=== PATIENT | female | born 1955 ===

== ENCOUNTER 2020-09-24 08:29 | Outpatient (REF) | payer OTHER, SELFPAY ==
--- NOTE | 2020-09-24 08:36 | MM_ITS ---
EXAMINATION: MM SCREENING DIGITAL BREAST TOMOSYNTHESIS, BILATERAL CLINICAL INFORMATION: Screening. Asymptomatic. The lifetime risk of breast cancer based on the Tyrer-Cuzick Model is 4%. COMPARISON: Mammography: 09/19/2019, 09/10/2018, 09/03/2017 TECHNIQUE: Digital breast tomosynthesis is performed in both the craniocaudal and mediolateral oblique views along with computer-aided detection (CAD). Synthesized 2D images are generated from the tomosynthesis. FINDINGS: There are scattered areas of fibroglandular density (ACR BI-RADS breast composition Category b). There are no significant masses, abnormal calcifications, or other abnormalities. The axilla and skin contours are unremarkable. No significant changes. MM/MM tomosynthesis screening BI IMPRESSION: No mammographic evidence of malignancy. ASSESSMENT: BI-RADS 1: Negative RECOMMENDATION: Routine annual mammography screening. This patient's information was entered into a reminder system with a target due date for their next mammogram.
== END 2020-09-24 08:30 | disposition home or self-care (01) ==
LOC: HO.MAMMO 08:29
PROVIDERS: Visit Provider Hospitalist
DX: Z12.31 Encounter for screening mammogram for malignant neoplasm of breast (principal)
CPT/HCPCS: 77063; 77067

== ENCOUNTER 2021-01-04 07:28 | Day surgery (SDC) | payer OTHER, SELFPAY ==
[2020-12-31 10:13] VITALS: BMI 26.8
--- NOTE | 2021-01-03 09:07 | HO.ANESPROP2 ---
Documented by User: Soledad Titus 01/03/21 09:08 HPI - Anesthesia Eval Consult details Narrative: 65yo F for Colonoscopy PMFSH Past Medical History Medical History Diabetes Elevated cholesterol HTN (hypertension) Surgical History Surgical History H/O colonoscopy History of Hx of appendectomy Hx of total hysterectomy with removal of both tubes and ovaries Social History Social History Smoking Status: Unknown if ever smoked Advance Directives Information Provided: No Meds Allergies Allergy/AdvReac Type Severity Reaction Status Date / Time penicillin V Allergy Intermediate rash, Verified 12/31/20 10:11 hives, swollen lips Sulfa (Sulfonamide Allergy Intermediate rash, Verified 12/31/20 10:11 Antibiotics) hives, swollen lips Home Medications Medication Instructions Recorded Confirmed Last Taken Type aspirin [Aspirin Low Dose] 81 mg PO DAILY 12/31/20 12/31/20 12/26/20 History atorvastatin 1 tab PO DAILY 12/31/20 12/31/20 Unknown History cholecalciferol (vitamin D3) 25 mcg PO DAILY 12/31/20 12/31/20 Unknown History [Vitamin D3] glipizide 1 tab PO DAILY 12/31/20 12/31/20 Unknown History hydrochlorothiazide 1 tab PO DAILY 12/31/20 12/31/20 Unknown History lisinopril 1 tab PO DAILY 12/31/20 12/31/20 01/04/21 History metformin 1 tab PO BID 12/31/20 12/31/20 Unknown History multivitamin 1 tab PO DAILY 12/31/20 12/31/20 Unknown History Exam Exam Date and Time: January 03, 2021 0907 Height,Weight and Vital Signs: Height 5 ft 6 in Weight 75.296 kg Assessment and Plan Assessment Anesthesia Assessment: Chart Reviewed Documented by User: Linda Calloway 01/04/21 08:30 [facility] Past Medical History Medical History Diabetes Elevated cholesterol HTN (hypertension) Surgical History Surgical History H/O colonoscopy History of Hx of appendectomy Hx of total hysterectomy with removal of both tubes and ovaries Social History Social History Smoking Status: Unknown if ever smoked Advance Directives Information Provided: No Meds Allergies Allergy/AdvReac Type Severity Reaction Status Date / Time penicillin V Allergy Intermediate rash, Verified 12/31/20 10:11 hives, swollen lips Sulfa (Sulfonamide Allergy Intermediate rash, Verified 12/31/20 10:11 Antibiotics) hives, swollen lips Home Medications Medication Instructions Recorded Confirmed Last Taken Type aspirin [Aspirin Low Dose] 81 mg PO DAILY 12/31/20 12/31/20 12/26/20 History atorvastatin 1 tab PO DAILY 12/31/20 12/31/20 Unknown History cholecalciferol (vitamin D3) 25 mcg PO DAILY 12/31/20 12/31/20 Unknown History [Vitamin D3] glipizide 1 tab PO DAILY 12/31/20 12/31/20 Unknown History hydrochlorothiazide 1 tab PO DAILY 12/31/20 12/31/20 Unknown History lisinopril 1 tab PO DAILY 12/31/20 12/31/20 01/04/21 History metformin 1 tab PO BID 12/31/20 12/31/20 Unknown History multivitamin 1 tab PO DAILY 12/31/20 12/31/20 Unknown History Exam Height,Weight and Vital Signs: Vital Signs Temp Pulse Resp BP Pulse Ox 01/04/21 07:51 98.1 F 84 18 116/66 98 Pertinent Lab Results Pertinent Lab Results: POC: 123 Airway Mallampati Class: II TM Dist: >3cm Neck ROM: Full Loose/Missing/Broken Teeth: No Heart: RRR Lungs: CTAB Assessment and Plan Assessment Anesthesia Assessment: Anesthesia Plan Discussed and Chart Reviewed Final Anesthetic Review NPO: Yes ASA Class: II Final Preanesthetic Review: No Changes in Pt Med Stat, Meds/Allgs Chart Reviewed, Consent Obtained/Reviewed and Anes Risks/Benef Reviewed Patient Risk: Low Procedure Risk: Low Assessment/Block/Sedation in SS: Assess/Block/Sedation-SS Anesthetic Plan Anesthetic Plan: MAC: Disposition: Standard PACU
[2021-01-04 07:51] VITALS: BP 116/66; PULSE 84; RESP 18; TEMP 36.7; O2SAT 98
[2021-01-04] MEDS: Lactated Ringers 1,000 ML 100 ML IVCONT (08:10)
--- NOTE | 2021-01-04 08:52 | MHC.SHP ---
Pre-Procedural Eval Section A The patient is an INPATIENT: No The History & Physical has been completed within 30 days and I have reviewed it.: Yes Section B Chief Complaint: family hx of polyps Allergies: Allergies Allergy/AdvReac Type Severity Reaction Status Date / Time penicillin V Allergy Intermediate rash, Verified 12/31/20 10:11 hives, swollen lips Sulfa (Sulfonamide Allergy Intermediate rash, Verified 12/31/20 10:11 Antibiotics) hives, swollen lips Plan I have reviewed the history and physical and performed a pertinent physical examination on my patient. No changes have occurred unless specified.
[2021-01-04 09:29] VITALS: BP 112/61; PULSE 81; RESP 20; TEMP 36.8; O2SAT 96
--- NOTE | 2021-01-04 09:32 | PM.OP ---
Brief Operative Note Date of Service: 01/04/21 Pre-op diagnosis: FH colon cancer Post-op diagnosis: same Procedure: colonoscopy Surgeon: Shyam Lerma Anesthesia: MAC Estimated blood loss (mL): 0 Pathology: none sent Condition: stable Disposition: PACU
[2021-01-04 09:42] VITALS: BP 129/67; PULSE 84; RESP 18; O2SAT 100
--- NOTE | 2021-01-04 10:13 | PM.OP ---
Brief Operative Note Date of Service: 01/04/21 Pre-op diagnosis: change in bowels, hx of polyps Post-op diagnosis: same Procedure: colonoscopy Surgeon: Shyam Lerma Anesthesia: MAC Estimated blood loss (mL): 2 Pathology: other (sigmoid bxs) Condition: stable Disposition: PACU
[2021-01-04 13:26] LABS: Glucose, Whole Blood 123 mg/dL (60-115)
--- NOTE | 2021-01-07 08:52 | OP_ITS ---
SURGEON: Shyam Lerma MD INDICATIONS: Colon cancer screening and family history of colon cancer. PREOPERATIVE DIAGNOSIS: POSTOPERATIVE DIAGNOSIS: PROCEDURE PERFORMED: Colonoscopy to the terminal ileum. ESTIMATED BLOOD LOSS: COMPLICATIONS: ANESTHESIA: ASSISTANTS: SPECIMENS: MEDICATIONS: Monitored anesthesia care. DESCRIPTION OF PROCEDURE: History and physical performed. The risks and benefits of the procedure were explained to the patient. Informed consent was obtained. The patient was placed in the left lateral decubitus position. A digital rectal exam was performed and was found to be normal. The Olympus pediatric video colonoscope was introduced into the rectum and advanced to the cecum without difficulty. The cecum was identified by transillumination, palpation, and identification of ileocecal valve. Examination was performed and the scope was removed. She tolerated the procedure well and was transferred to recovery area in stable condition. FINDINGS: The terminal ileum was examined and appeared normal. The visualized colonic mucosa was normal. The quality of the prep was good with some minor amounts of liquid stool coating the mucosa in the right colon. This was washed and suctioned. No polyps were identified. Retroflexed examination showed small internal hemorrhoids and hypertrophic anal papillae. IMPRESSION: Normal colonoscopy. RECOMMENDATIONS: 1. Follow up as needed. 2. Repeat colonoscopy is recommended in 5 years because of family history of colon cancer. MD DANNY Longo/NICOLA / [phone]
== END 2021-01-04 10:11 | disposition home or self-care (01) ==
PROVIDERS: PCP Hospitalist; Visit Provider Internal Medicine Gastroenterology
PROC: 0DJD8ZZ Inspection of Lower Intestinal Tract, Via Natural or Artificial Opening Endoscopic (ICD-10-PCS; CPT 45378; principal; 2021-01-04 08:30)
DX: Z12.11 Encounter for screening for malignant neoplasm of colon (principal); Z83.71 Family history of colonic polyps; Z80.0 Family history of malignant neoplasm of digestive organs; K62.89 Other specified diseases of anus and rectum; K64.8 Other hemorrhoids; I10 Essential (primary) hypertension; E11.9 Type 2 diabetes mellitus without complications; Z79.84 Long term (current) use of oral hypoglycemic drugs; Z79.82 Long term (current) use of aspirin; Z88.0 Allergy status to penicillin; Z88.2 Allergy status to sulfonamides; Z79.899 Other long term (current) drug therapy
CPT/HCPCS: 45378; 82947

== ENCOUNTER 2021-03-20 06:22 | Outpatient (REF) | payer OTHER, SELFPAY ==
[2021-03-20 11:33] LABS: Hemoglobin 14.1 g/dl (12.0-16.0); Mean Corpuscular Hemoglobin 28.8 pg (27.0-33.0); Mean Platelet Volume 10.8 fL (9.4-12.3); Platelet Count 368 X10*3/uL (160-400); Red Blood Count 4.89 X10*6/uL (4.20-5.50); Red Cell Distribution Width 12.9 % (11.0-16.0); White Blood Count 7.6 X10*3/uL (4.8-10.8)
[2021-03-20 11:47] LABS: Estimated Average Glucose 146 mg/dL; Hemoglobin A1c % 6.7 %
[2021-03-20 11:59] LABS: Alanine Aminotransferase 23 U/L (0-31); Albumin Level 4.3 g/dL (3.5-5.0); Alkaline Phosphatase 95 U/L (39-117); Anion Gap 14 (12-20); Aspartate Amino Transferase 20 U/L (5-31); Bilirubin Direct 0.3 mg/dL (0.0-0.5); Bilirubin Total 0.9 mg/dL (0.0-1.0); Blood Urea Nitrogen 19 mg/dL (9-16); Calcium 9.7 mg/dL (8.4-10.2); Carbon Dioxide 25 mmol/L (22-29); Chloride 104 mmol/L (96-108); Cholesterol 132 mg/dL; Estimated Glomerular Filt Rate > 60; HDL Cholesterol 44 mg/dL; LDL Cholesterol Calculated 68 mg/dl; Potassium 4.8 mmol/L (3.3-5.1); Sodium 138 mmol/L (135-145); Total Protein 6.9 g/dL (6.5-8.0); Triglycerides 104 mg/dL
[2021-03-20 12:11] LABS: Creatinine Urine 141.73 mg/dL; Microalbum/Creatinine Ratio Ur 4.2 ug/mg cr
== END 2021-03-20 06:23 | disposition home or self-care (01) ==
LOC: HO.HMGCLDS 06:22
PROVIDERS: PCP Hospitalist; Visit Provider Nurse Practitioner Family
DX: Z00.00 Encounter for general adult medical examination without abnormal findings (principal); E11.9 Type 2 diabetes mellitus without complications
CPT/HCPCS: 36415; 80051; 80061; 80076; 82043; 82310; 82565; 83036; 84520; 85027

== ENCOUNTER 2021-09-27 08:03 | Outpatient (REF) | payer OTHER, SELFPAY ==
--- NOTE | ~2021-09-27 | MM_ITS ---
EXAMINATION: MM SCREENING DIGITAL BREAST TOMOSYNTHESIS, BILATERAL CLINICAL INFORMATION: Screening. Asymptomatic. The lifetime risk of breast cancer based on the Tyrer-Cuzick Model is 4%. COMPARISON: Mammography: 09/24/2020, 09/19/2019, 09/10/2018 TECHNIQUE: Digital breast tomosynthesis is performed in both the craniocaudal and mediolateral oblique views along with computer-aided detection (CAD). Synthesized 2D images are generated from the tomosynthesis. FINDINGS: There are scattered areas of fibroglandular density (ACR BI-RADS breast composition Category b). There are no significant masses, abnormal calcifications, or other abnormalities. MM/MM tomosynthesis screening BI IMPRESSION: No mammographic evidence of malignancy. ASSESSMENT: BI-RADS 1: Negative RECOMMENDATION: Routine annual mammography screening. This patient's information was entered into a reminder system with a target due date for their next mammogram.
== END 2021-09-27 08:04 | disposition home or self-care (01) ==
LOC: HO.MAMMO 08:03
PROVIDERS: PCP Hospitalist; Visit Provider Hospitalist
DX: Z12.31 Encounter for screening mammogram for malignant neoplasm of breast (principal)
CPT/HCPCS: 77063; 77067

== ENCOUNTER 2022-03-17 12:51 | Outpatient (REF) | payer OTHER, SELFPAY ==
[2022-03-17 13:59] LABS: Estimated Average Glucose 148 mg/dL; Hemoglobin A1c % 6.8 %
== END 2022-03-17 12:52 | disposition home or self-care (01) ==
LOC: HO.HMGCLDS 12:51
PROVIDERS: Visit Provider Student in an Organized Health Care Education/Training Program
DX: E11.9 Type 2 diabetes mellitus without complications (principal)
CPT/HCPCS: 36415; 83036

== ENCOUNTER 2022-04-02 10:31 | Outpatient (REF) | payer OTHER, SELFPAY ==
[2022-04-02 11:43] LABS: MANUAL DIFF FLAG NO
[2022-04-02 11:52] LABS: Basophils Absolute Auto 0.1 X10*3/uL (0.0-0.2); Basophils Percent Auto 0.6 % (0-2); Eosinophils Absolute Auto 0.1 X10*3/uL (0.0-0.4); Eosinophils Percent Auto 1.2 % (0-4); Hematocrit 43.8 % (37.0-47.0); Hemoglobin 14.4 g/dl (12.0-16.0); Imm Gran Abs Auto 0.03 X10*3/uL (0.00-0.03); Imm Gran Pct Auto 0.4 % (0.0-0.4); Lymphocytes Absolute Auto 2.6 X10*3/uL (1.2-4.9); Lymphocytes Percent Auto 30.6 % (20-40); Mean Corpuscular HGB Conc 32.9 g/dl (31.0-35.0); Mean Corpuscular Volume 88.3 fL (80.0-98.0); Mean Platelet Volume 10.4 fL (9.4-12.3); Monocytes Absolute Auto 0.6 X10*3/uL (0.1-1.2); Monocytes Percent Auto 7.3 % (2-11); Neutrophils Absolute Auto 5.1 x10*3/uL (2.0-8.3); Neutrophils Percent Auto 59.9 % (45-73); Platelet Count 383 X10*3/uL (160-400); Red Blood Count 4.96 X10*6/uL (4.20-5.50); Red Cell Distribution Width 12.5 % (11.0-16.0); White Blood Count 8.5 X10*3/uL (4.8-10.8)
[2022-04-02 12:12] LABS: Creatinine Urine 41.86 mg/dL; Microalbumin Urine < 5.0 mg/L
[2022-04-02 12:16] LABS: Alanine Aminotransferase 30 U/L (0-31); Albumin Level 4.5 g/dL (3.5-5.0); Alkaline Phosphatase 87 U/L (39-117); Anion Gap 12 (12-20); Aspartate Amino Transferase 20 U/L (5-31); Bilirubin Total 0.7 mg/dL (0.0-1.0); Blood Urea Nitrogen 20 mg/dL (9-16); Calcium 10.1 mg/dL (8.4-10.2); Carbon Dioxide 29 mmol/L (22-29); Chloride 103 mmol/L (96-108); Cholesterol 138 mg/dL; Estimated Glomerular Filt Rate 57; Glucose Random 190 mg/dL (60-115); HDL Cholesterol 43 mg/dL; LDL Cholesterol Calculated 66 mg/dl; Potassium 4.5 mmol/L (3.3-5.1); Sodium 139 mmol/L (135-145); Total Protein 7.2 g/dL (6.5-8.0); Triglycerides 145 mg/dL
[2022-04-02 12:42] LABS: TSH reflex Free T4 3.24 uIU/mL (0.32-4.0)
[2022-04-02 13:09] LABS: Vitamin B12 224 pg/mL (200-900)
== END 2022-04-02 10:32 | disposition home or self-care (01) ==
LOC: HO.HMGCLDS 10:31
PROVIDERS: PCP Physician Assistant; Visit Provider Physician Assistant
DX: Z00.00 Encounter for general adult medical examination without abnormal findings (principal); E11.9 Type 2 diabetes mellitus without complications; E78.5 Hyperlipidemia, unspecified; I10 Essential (primary) hypertension
CPT/HCPCS: 36415; 80053; 80061; 82043; 82607; 84443; 85025

== ENCOUNTER 2022-09-29 07:23 | Outpatient (REF) | payer MEDICARE, OTHER, SELFPAY ==
--- NOTE | ~2022-09-29 | MM_ITS ---
EXAMINATION: MM SCREENING DIGITAL BREAST TOMOSYNTHESIS, BILATERAL CLINICAL INFORMATION: Screening. Asymptomatic. The lifetime risk of breast cancer based on the Tyrer-Cuzick Model is 4%. COMPARISON: Mammography: 09/27/2021, 09/24/2020, 09/19/2019 TECHNIQUE: Digital breast tomosynthesis is performed in both the craniocaudal and mediolateral oblique views along with computer-aided detection (CAD). Synthesized 2D images are generated from the tomosynthesis. FINDINGS: There are scattered areas of fibroglandular density (ACR BI-RADS breast composition Category b). There are no significant masses, abnormal calcifications, or other abnormalities. Parenchymal pattern is similar to prior studies. There is no developing density or architectural abnormality. The axilla and skin contours are unremarkable. No significant changes. MM/MM tomosynthesis screening BI IMPRESSION: No mammographic evidence of malignancy. ASSESSMENT: BI-RADS 1: Negative RECOMMENDATION: Routine annual mammography screening. This patient's information was entered into a reminder system with a target due date for their next mammogram.
== END 2022-09-29 07:24 | disposition home or self-care (01) ==
LOC: HO.MAMMO 07:23
PROVIDERS: PCP Internal Medicine; Visit Provider Physician Assistant
DX: Z12.31 Encounter for screening mammogram for malignant neoplasm of breast (principal)
CPT/HCPCS: 77063; 77067

== ENCOUNTER 2022-10-03 10:18 | Outpatient (REF) | payer MEDICARE, OTHER, SELFPAY ==
--- NOTE | ~2022-10-03 | MM_ITS ---
EXAMINATION: BONE DENSITOMETRY CLINICAL INDICATION: Osteoporosis. COMPARISON: Baseline BD dated 09/25/2017. TECHNIQUE: Using a [employer] DXA System (software version: 13.1) manufactured by [employer], dual-energy x-ray absorptiometry was performed of the lumbar spine and left hip. The images are of good technical quality. Summary results are attached. FINDINGS: AP SPINE L1-L4: Current: BMD 1.050 g/cm2, Z-score 0.2, T-score -1.1, osteopenia, 0.8% decrease from baseline (<5% change is not significant). Baseline: BMD 1.058 g/cm2. LEFT FEMUR, NECK: Current: BMD 0.774 g/cm2, Z-score -0.7, T-score -1.9, osteopenia. Baseline: BMD 0.777 g/cm2. LEFT FEMUR, TOTAL: Current: BMD 0.834 g/cm2, Z-score -0.4, T-score -1.4, osteopenia, 2.5% increase from baseline (<5% change is not significant). Baseline: BMD 0.814 g/cm2. IDENTIFIED RISK FACTORS: Height loss, history of fracture (adult). Early menopause, secondary osteoporosis, thiazide, hysterectomy, right oophorectomy. HISTORY OF FRACTURE: Other. MEDICATIONS: Calcium supplements or multivitamin, vitamin D. MM/XR DEXA axial skeleton IMPRESSION: 1. DIAGNOSIS: Osteopenia based on the lowest T-score value of -1.9 in the femoral neck applying World Health Organization criteria. 2. 10-YEAR FRACTURE RISK PREDICTION, FRAX: Major osteoporotic fracture (clinical spine, forearm, hip or shoulder) 16.9%. Hip fracture 2.4%. 3. Treatment Recommendations: NOF guidelines recommend consideration for treatment in postmenopausal women and men age 50 and older presenting with the following: -A hip or vertebral (clinical or morphometric) fracture. -T-score less than or equal to -2.5 at the femoral neck or spine after appropriate evaluation to exclude secondary causes. -Low bone mass at the hip or spine and a 10-year fracture probability by FRAX of greater than or equal to 3% for hip fracture or greater than or equal to 20% for major osteoporotic fracture based on the [place] adapted WHO algorithm. 4. Other Recommendations: All treatment decisions require clinical judgment and consideration of individual patient factors, including patient preferences, comorbidities, previous drug use, risk factors not captured in the FRAX model (e.g. frailty, falls, vitamin D deficiency, increased bone turnover, interval significant decline in bone density) and possible under or overestimation of fracture risk by FRAX. Additional medical evaluation for secondary cause of low bone mineral density may be appropriate. FUTURE SCAN RECOMMENDATION: People with diagnosed cases of osteoporosis or at high risk for fracture should have regular bone mineral density tests. For patients eligible for Medicare, routine testing is allowed once every 2 years. The testing frequency can be increased to one year for patients who have rapidly progressing disease, those who are receiving or discontinuing medical therapy to restore bone mass, or have additional risk factors.
== END 2022-10-03 10:19 | disposition home or self-care (01) ==
LOC: HO.MAMMO 10:18
PROVIDERS: Visit Provider Nurse Practitioner Adult Health
DX: Z13.820 Encounter for screening for osteoporosis (principal); Z78.0 Asymptomatic menopausal state
CPT/HCPCS: 77080

== ENCOUNTER 2022-10-10 12:38 | Outpatient (REF) | payer MEDICARE, OTHER, SELFPAY | END 2022-10-10 12:39 | disposition home or self-care (01) | LOC: HO.MAMMO 12:38 | PROVIDERS: Visit Provider Nurse Practitioner Adult Health | DX: M85.80 Other specified disorders of bone density and structure, unspecified site (principal); R29.890 Loss of height | CPT/HCPCS: 77086 ==

== ENCOUNTER 2022-11-25 17:24 | Emergency (ER) | payer MEDICARE, OTHER, SELFPAY ==
--- NOTE | ~2022-11-25 | MR_ITS ---
EXAMINATION: MR BRAIN WITHOUT CONTRAST CLINICAL INFORMATION: Lightheadedness. COMPARISON: Head CT dated 11/25/2022. TECHNIQUE: Multiplanar, multisequence imaging of the brain was performed without contrast. FINDINGS: No diffusion abnormalities are identified to suggest an acute infarct. The ventricles are normal in size. No mass effect or midline shift is seen. No brain parenchymal signal abnormality is noted. No extra-axial fluid collections are seen. The brainstem and cerebellum are normal. There is an incidental developmental venous anomaly in the superior right frontal lobe. The gradient refocused acquisition is normal. The craniovertebral junction, marrow signal, and midline structures are normal. The major intracranial flow voids at the level of the [place] are preserved. The dural venous sinus flow voids are maintained. The mastoid air cells and paranasal sinuses are well aerated. MR/MR head/brain wo con IMPRESSION: Aside from a right frontal development of venous anomaly, relatively normal MRI of the brain. No acute process.
--- NOTE | ~2022-11-25 | CT_ITS ---
EXAMINATION: CT HEAD WITHOUT CONTRAST CLINICAL INFORMATION: Lightheaded COMPARISON: None TECHNIQUE: Contiguous axial imaging was performed from the skull base to vertex without intravenous administration of contrast. This CT examination was performed using dose optimization techniques as appropriate, variously including the following: *Automated exposure control *Adjustment of mA and/or kV according to patient size (this includes techniques or standardized protocols for targeted exams where dose is matched to indication/reason for exam; i.e. extremities or head) *Use of iterative reconstruction technique DLP: 641 mGy-cm FINDINGS: There is no evidence of acute intracranial hemorrhage or edematous territorial infarction. No abnormal mass effect or midline shift is seen. Lyles to white matter differentiation is well preserved. No extra-axial fluid collections are identified. The ventricles are normal in size. No abnormal attenuation in the brain parenchyma. No acute calvarial fracture.. Paranasal sinuses and mastoid air cells are well-aerated. CT/CT head/brain wo IV con IMPRESSION: No CT evidence of acute intracranial hemorrhage or edematous territorial infarction. Etiology of the patient's symptoms has not been determined by noncontrast CT.
[2022-11-25 17:29] VITALS: BP 129/73; BP 145/66; PULSE 83; PULSE 86; RESP 18; TEMP 37.1; O2SAT 100; O2SAT 99; BMI 27.2
[2022-11-25 17:40] VITALS: BP 129/73; PULSE 83; RESP 18; TEMP 37.1; O2SAT 100
--- NOTE | 2022-11-25 17:50 | ECG_ITS ---
Test Reason : DIZZINESS Blood Pressure : / mmHG Vent. Rate : 078 BPM Atrial Rate : 078 BPM P-R Int : 158 ms QRS Dur : 064 ms QT Int : 386 ms P-R-T Axes : 029 -01 006 degrees QTc Int : 440 ms Normal sinus rhythm Nonspecific ST abnormality Abnormal ECG No previous ECGs available Referred By: Sarai Pereyra Electronically Signed By:Alfie Early
[2022-11-25 18:16] LABS: MANUAL DIFF FLAG NO
[2022-11-25 18:18] LABS: Appearance Urine Clear; Color Urine Yellow; Glucose Urine UA Negative (Negative); Leukocyte Esterase Urine Negative (Negative); Nitrite Urine Negative (Negative); Specific Gravity - Urine <= 1.005 (1.005-1.025); Urine Blood Negative (Negative); Urine Ketones Negative (Negative); Urine Protein Negative (Neg-Trace)
[2022-11-25 18:19] LABS: Basophils Absolute Auto 0.1 X10*3/uL (0.0-0.2); Basophils Percent Auto 0.7 % (0-2); Eosinophils Absolute Auto 0.1 X10*3/uL (0.0-0.4); Eosinophils Percent Auto 1.7 % (0-4); Hematocrit 40.2 % (37.0-47.0); Hemoglobin 13.2 g/dl (12.0-16.0); Imm Gran Abs Auto 0.03 X10*3/uL (0.00-0.03); Imm Gran Pct Auto 0.4 % (0.0-0.4); Lymphocytes Percent Auto 39.3 % (20-40); Mean Corpuscular HGB Conc 32.8 g/dl (31.0-35.0); Mean Corpuscular Hemoglobin 28.8 pg (27.0-33.0); Mean Corpuscular Volume 87.8 fL (80.0-98.0); Mean Platelet Volume 10.1 fL (9.4-12.3); Monocytes Absolute Auto 0.7 X10*3/uL (0.1-1.2); Monocytes Percent Auto 9.2 % (2-11); Neutrophils Absolute Auto 3.7 x10*3/uL (2.0-8.3); Neutrophils Percent Auto 48.7 % (45-73); Platelet Count 338 X10*3/uL (160-400); Red Blood Count 4.58 X10*6/uL (4.20-5.50); Red Cell Distribution Width 12.6 % (11.0-16.0); White Blood Count 7.6 X10*3/uL (4.8-10.8)
--- NOTE | 2022-11-25 18:37 | ED.DIZZY ---
HPI - Dizziness General Chief Complaint: Dizziness Stated Complaint: DIZZY W/CHEST DISCOMFORT X'S 1 WEEK PER EMS Time Seen by Provider: 11/25/22 17:49 Source: patient Mode of arrival: ambulatory History of Present Illness HPI Narrative: This 67-year-old female, diabetic, hypertensive who has a strong family history of CAD who presents with ?lightheadedness? since Thursday but really began to be prominent on Thursday and states that since that time she has tried to limit any kind of movement due to the way that she feels. Patient states that she does have a remote history of vertigo, however this does not feel the same as the room is not spinning. She denies any association with position change, time of day, exertion and denies any associated fever, chills, GI or symptoms and denies any associated shortness of breath, headache, chest pain/palpitations. Related Data Home Medications Medication Instructions Recorded Confirmed aspirin 81 mg tablet,delayed 81 mg PO DAILY 12/31/20 11/25/22 release (Major Low Dose Aspirin) atorvastatin 40 mg tablet 1 tab PO DAILY 12/31/20 11/25/22 cholecalciferol (vitamin D3) 25 25 mcg PO DAILY 12/31/20 11/25/22 mcg (1,000 unit) capsule (Vitamin D3) glipizide 5 mg tablet 1 tab PO DAILY 12/31/20 11/25/22 hydrochlorothiazide 12.5 mg tablet 1 tab PO DAILY 12/31/20 11/25/22 lisinopril 20 mg tablet 1 tab PO DAILY 12/31/20 11/25/22 metformin 750 mg tablet,extended 1 tab PO BID 12/31/20 11/25/22 release 24 hr multivitamin 1 tab PO DAILY 12/31/20 11/25/22 Previous Rx's Medication Instructions Recorded meclizine 12.5 mg tablet 12.5 mg PO BID PRN dizziness #7 11/25/22 tabs Allergies Allergy/AdvReac Type Severity Reaction Status Date / Time penicillin V Allergy Intermediate rash, Verified 12/31/20 10:11 hives, swollen lips Sulfa (Sulfonamide Allergy Intermediate rash, Verified 12/31/20 10:11 Antibiotics) hives, swollen lips Review of Systems Review of Systems: Pertinent positives and negatives as stated in HPI PMFSH Past Medical History Source: nursing notes reviewed Medical History Diabetes Elevated cholesterol HTN (hypertension) Surgical History H/O colonoscopy History of Hx of appendectomy Hx of total hysterectomy with removal of both tubes and ovaries Social History Social History Alcohol intake: never Smoked in Last 30 Days: No Use of substances other than those prescribed or required for medical reasons: No Advance Directives: No Advance Directives Information Provided: Yes Physical Exam Vital Signs: Vital Signs: Last Vital Signs Temp 98.8 F 11/25/22 17:40 Pulse 100 11/25/22 18:52 Resp 18 11/25/22 17:40 BP 132/63 11/25/22 18:52 Pulse Ox 100 11/25/22 17:40 O2 Del Method 11/25/22 17:40 BMI result Body Mass Index 27.2 VITAL SIGNS: Reviewed. GENERAL: Well developed, well nourished, in no acute distress. HEAD: Normocephalic/atraumatic EYES: PERRLA, EOMI EARS: Ext canals without abnormality, TMs non-bulging and non-erythematous NOSE: Nares patent bilateral OROPHARYNX: no oral lesions noted, posterior pharynx clear NECK: Supple, no adenopathy LUNGS: Normal breath sounds. No adventitious sounds or accessory muscle use. SpO2<100> CARDIOVASCULAR: Regular rate and rhythm without noted murmurs, no JVD or lower extremity edema. ABDOMEN: Soft, non-tender, non-distended with bowel sounds. MUSCULOSKELETAL: No tenderness, deformities, or effusions noted on gross inspection. EXTREMITIES: No cyanosis, clubbing or edema. SKIN: Inspection of the skin reveals no rashes NEUROLOGIC: Alert and oriented x 4. Strength and sensation to light touch were grossly intact x 4, no facial asymmetry, no pronator drift, cranial nerves 2-12 are grossly intact. Medical Decision Making Medical Decision Making MDM Narrative: 67-year-old female with significant risk factors, however limited history other than the lightheadedness that remains inexplicable and concerning for possible posterior event or possible insufficiency through the posterior system. She denies any auditory or visual changes and history is not significant for any recent illnesses and neurologic exam and history not consistent with an ascending neurologic disorder. Labs, CT/MRI, UA. I reviewed all investigations and my interpretation is that this is of a benign nature, potentially virally associated, 12.5 mg of meclizine was provided and all results, findings and plans were discussed with the patient at bedside. Differential Diagnosis Differential Diagnoses: The differential diagnosis associated with the presentation includes Please see the discussion above Lab Data MDM Lab Attestation statement: I reviewed the patient's lab results. Please to the discussion above 11/25/22 18:11 11/25/22 18:11 Labs: Lab Results 11/25/22 11/25/22 11/25/22 Range/Units 18:11 18:11 18:11 WBC 7.6 (4.8-10.8) X10*3/uL RBC 4.58 (4.20-5.50) X10*6/uL Hgb 13.2 (12.0-16.0) g/dl Hct 40.2 (37.0-47.0) % MCV 87.8 (80.0-98.0) fL MCH 28.8 (27.0-33.0) pg MCHC 32.8 (31.0-35.0) g/dl RDW 12.6 (11.0-16.0) % Plt Count 338 (160-400) X10*3/uL MPV 10.1 (9.4-12.3) fL Immature Gran % (Auto) 0.4 (0.0-0.4) % Neut % (Auto) 48.7 (45-73) % Lymph % (Auto) 39.3 (20-40) % [place] % (Auto) 9.2 (2-11) % Eos % (Auto) 1.7 (0-4) % Baso % (Auto) 0.7 (0-2) % Lymph # (Auto) 3.0 (1.2-4.9) X10*3/uL [place] # (Auto) 0.7 (0.1-1.2) X10*3/uL Eos # (Auto) 0.1 (0.0-0.4) X10*3/uL Baso # (Auto) 0.1 (0.0-0.2) X10*3/uL Abs Immat Gran (auto) 0.03 (0.00-0.03) X10*3/uL Absolute Neuts (auto) 3.7 (2.0-8.3) x10*3/uL Absolute Nucleated RBC 0.000 (0.0-0.012) X10*3/uL Nucleated RBC % (auto) 0.0 (0.0-0.2) /100WBC D-Dimer High Sensitivty NG/ML Sodium 140 (135-145) mmol/L Potassium 4.2 (3.3-5.1) mmol/L Chloride 106 (96-108) mmol/L Carbon Dioxide 25 (22-29) mmol/L Anion Gap 13 (12-20) BUN 24 H (9-16) mg/dL Creatinine 0.89 (0.5-1.4) mg/dL Estim Creat Clear Calc 63.5 Estimated GFR > 60 Random Glucose 169 H (60-115) mg/dL Calcium 9.8 (8.4-10.2) mg/dL Total Bilirubin 0.6 (0.0-1.0) mg/dL AST 15 (5-31) U/L ALT 20 (0-31) U/L Alkaline Phosphatase 82 (39-117) U/L Troponin I High Sens < 3.5 (<3.5-17.0) ng/L Total Protein 6.6 (6.5-8.0) g/dL Albumin 4.2 (3.5-5.0) g/dL Urine Color Urine Appearance Urine pH (5.0-9.0) Ur Specific [place] (1.005-1.025) Urine Protein (Neg-Trace) mg/dL Urine Glucose (UA) (Negative) mg/dL Urine Ketones (Negative) mg/dL Urine Blood (Negative) Urine Nitrite (Negative) Ur Leukocyte Esterase (Negative) 11/25/22 11/25/22 Range/Units 18:11 19:29 WBC (4.8-10.8) X10*3/uL RBC (4.20-5.50) X10*6/uL Hgb (12.0-16.0) g/dl Hct (37.0-47.0) % MCV (80.0-98.0) fL MCH (27.0-33.0) pg MCHC (31.0-35.0) g/dl RDW (11.0-16.0) % Plt Count (160-400) X10*3/uL MPV (9.4-12.3) fL Immature Gran % (Auto) (0.0-0.4) % Neut % (Auto) (45-73) % Lymph % (Auto) (20-40) % [place] % (Auto) (2-11) % Eos % (Auto) (0-4) % Baso % (Auto) (0-2) % Lymph # (Auto) (1.2-4.9) X10*3/uL [place] # (Auto) (0.1-1.2) X10*3/uL Eos # (Auto) (0.0-0.4) X10*3/uL Baso # (Auto) (0.0-0.2) X10*3/uL Abs Immat Gran (auto) (0.00-0.03) X10*3/uL Absolute Neuts (auto) (2.0-8.3) x10*3/uL Absolute Nucleated RBC (0.0-0.012) X10*3/uL Nucleated RBC % (auto) (0.0-0.2) /100WBC D-Dimer High Sensitivty 166 NG/ML Sodium (135-145) mmol/L Potassium (3.3-5.1) mmol/L Chloride (96-108) mmol/L Carbon Dioxide (22-29) mmol/L Anion Gap (12-20) BUN (9-16) mg/dL Creatinine (0.5-1.4) mg/dL Estim Creat Clear Calc Estimated GFR Random Glucose (60-115) mg/dL Calcium (8.4-10.2) mg/dL Total Bilirubin (0.0-1.0) mg/dL AST (5-31) U/L ALT (0-31) U/L Alkaline Phosphatase (39-117) U/L Troponin I High Sens (<3.5-17.0) ng/L Total Protein (6.5-8.0) g/dL Albumin (3.5-5.0) g/dL Urine Color Yellow Urine Appearance Clear Urine pH 6.0 (5.0-9.0) Ur Specific [place] <= 1.005 (1.005-1.025) Urine Protein Negative (Neg-Trace) mg/dL Urine Glucose (UA) Negative (Negative) mg/dL Urine Ketones Negative (Negative) mg/dL Urine Blood Negative (Negative) Urine Nitrite Negative (Negative) Ur Leukocyte Esterase Negative (Negative) Independent Interpretation I performed an independent interpretation of an: EKG Interpretation: Normal sinus rhythm, HR-78, no STEMI, HI/QRS/QTC is within normal limits. Radiology Impression Discussion of test interpretation with radiology: I discussed test interpretation with the radiologist Radiologist Impression: My interpretation is in agreement with radiology's impression of the imaging study. Chronic Conditions Patient?s care impacted by: Diabetes and Hypertension Discharge Plan Discharge Clinical Impression: Benign paroxysmal positional vertigo Patient Disposition: Home, Self-Care Instructions: Benign Paroxysmal Positional Vertigo (ED) Additional Instructions: 1. Resume all home medications. Continue to drink plenty of water. 2. Recommend that you follow-up with primary care provider by calling the office in the morning and setting up an appointment for re-evaluation further outpatient management. Return to the ER for any worsening symptoms. Prescriptions: New meclizine 12.5 mg tablet 12.5 mg PO BID PRN (Reason: dizziness) Qty: 7 0RF No Action multivitamin Tablet 1 tab PO DAILY atorvastatin 40 mg tablet 1 tab PO DAILY lisinopril 20 mg tablet 1 tab PO DAILY aspirin [Major Low Dose Aspirin] 81 mg Tablet,Delayed Release (Dr/Ec) 81 mg PO DAILY glipizide 5 mg tablet 1 tab PO DAILY cholecalciferol (vitamin D3) [Vitamin D3] 25 mcg (1,000 unit) Capsule 25 mcg PO DAILY metformin 750 mg tablet extended release 24 hr 1 tab PO BID hydrochlorothiazide 12.5 mg tablet 1 tab PO DAILY Referrals: Julien Sun MD [Primary Care Provider] -
[2022-11-25 18:47] LABS: Alanine Aminotransferase 20 U/L (0-31); Albumin Level 4.2 g/dL (3.5-5.0); Alkaline Phosphatase 82 U/L (39-117); Anion Gap 13 (12-20); Aspartate Amino Transferase 15 U/L (5-31); Bilirubin Total 0.6 mg/dL (0.0-1.0); Blood Urea Nitrogen 24 mg/dL (9-16); Calcium 9.8 mg/dL (8.4-10.2); Carbon Dioxide 25 mmol/L (22-29); Chloride 106 mmol/L (96-108); Creatinine Clr Calc Pharmacy 63.5; Estimated Glomerular Filt Rate > 60; Glucose Random 169 mg/dL (60-115); Potassium 4.2 mmol/L (3.3-5.1); Sodium 140 mmol/L (135-145); Total Protein 6.6 g/dL (6.5-8.0)
[2022-11-25 18:51] VITALS: BP 126/51; BP 131/62; PULSE 81; PULSE 82
[2022-11-25 18:52] VITALS: BP 132/63; PULSE 100
[2022-11-25 18:58] LABS: Troponin-I High Sensitivity < 3.5 ng/L (<3.5-17.0)
[2022-11-25 19:44] LABS: D Dimer High Sensitivity 166 NG/ML
== END 2022-11-25 23:35 | disposition home or self-care (01) ==
PROVIDERS: Emergency Provider Student in an Organized Health Care Education/Training Program; PCP Internal Medicine
DX: H81.10 Benign paroxysmal vertigo, unspecified ear (principal); E11.9 Type 2 diabetes mellitus without complications; I10 Essential (primary) hypertension; E78.00 Pure hypercholesterolemia, unspecified; Z79.82 Long term (current) use of aspirin; Z79.02 Long term (current) use of antithrombotics/antiplatelets; Z79.899 Other long term (current) drug therapy
CPT/HCPCS: 36415; 70450; 70551; 80053; 81003; 84484; 85025; 85379; 93005; 99285

== ENCOUNTER → 2023-01-07 13:17 | Outpatient (BNVA) | payer MEDICARE, OTHER, SELFPAY | PROVIDERS: PCP Internal Medicine; Visit Provider Internal Medicine Cardiovascular Disease | DX: R94.31 Abnormal electrocardiogram [ECG] [EKG] (principal) | CPT/HCPCS: 99202 ==

== ENCOUNTER → 2023-01-30 08:49 | Outpatient (REF) | payer MEDICARE, OTHER, SELFPAY ==
--- NOTE | ~2023-01-30 | NM_ITS ---
EXERCISE MYOCARDIAL PERFUSION STUDY INDICATION: Abnormal EKG, assess for coronary disease and ischemia TECHNIQUE: The patient was brought in for an exercise perfusion study on 01/30/2023. Patient performed exercise as per Homar protocol and was injected 25 mCi of sestamibi once target heart rate was achieved. Images were obtained using the SPECT gamma camera interlaced with the gating device. Images were obtained in supine position. Resting perfusion study was performed on 02/02/2023. Patient was administered 25 mCi of sestamibi intravenously at rest. Images were then obtained in supine position. Images were processed with the software and compared side to side in short axis, horizontal long axis and vertical long axis views. Total DLP 156mGy-cm. FINDINGS: Raw images were reviewed. Arms by the patient's side. The stress perfusion study showed diminished tracer uptake along the inferolateral wall. With CT attenuation correction, there is significant improvement suggestive of diaphragmatic attenuation artifact. The gated study shows normal LV systolic function with calculated LVEF of >70%. LV cavity is normal in size. The gated study shows normal wall thickening and contraction of segments. Resting study shows no significant perfusion abnormality. Gating at rest reveals normal wall motion with ejection fraction at 65%. The findings are consistent with reversible inferolateral defect suspected to be from diaphragmatic attenuation artifact. NM/NM cardiolite stress test IMPRESSION: 1. Myocardial perfusion imaging study shows likely normal myocardial perfusion. Reversible inferolateral defect suspected to be from diaphragmatic attenuation artifact. 2. Gated LVEF is >70% during stress; 64% with rest. 3. Transient ischemic dilatation not present. EKG component of the test reported separately.
--- NOTE | 2023-01-30 08:53 | CA_ITS ---
Transthoracic Echocardiogram Patient (Last, First, Middle): Vanessa Arroyo Crean Gender: Female Date of : 1955 Age: 67 Procedure Date: 01/30/2023 Procedure Type: Transthoracic Echocardiogram Location: OP Height: 165.1 cm Weight: 73.48 kg BSA: 1.81 m2 Heart Rate: bpm BP: 120 / 70 mmHg Administrative Underwriter: TO Referring MD: Mo Araya MD Symptoms: R94.31 - Abnormal electrocardiogram [ECG] [EKG] Study Quality: Fair Conclusions: - Normal left ventricular size, thickness, systolic function, and wall motion. The visually estimated ejection fraction is between 55-60%. - E/E prime ratio is between 8 and 15 consistent with indeterminate filling pressures. Reduced global longitudinal strain -14%. - Normal right ventricular cavity size and systolic function. - There is lipomatous hypertrophy of the interatrial septum. The atrial septum has a dumbell appearance. - There is mild dilatation of the ascending aorta measuring 3.30 cm. Findings Left Ventricle Normal left ventricular size, thickness, systolic function, and wall motion. The visually estimated ejection fraction is between 55-60%. Abnormal diastolic function is noted. Spectral Doppler is indicative of an impaired relaxation filling pattern. E/E prime ratio is between 8 and 15 consistent with indeterminate filling pressures. Reduced global longitudinal strain 14%. Right Ventricle Normal right ventricular cavity size and systolic function. Atria The left atrium is normal in size. There is lipomatous hypertrophy of the interatrial septum. The atrial septum has a dumbell appearance. The right atrium is normal in size. Aortic Valve Normal aortic valve structure and function. There is no aortic valve stenosis. There is no aortic valve regurgitation. Mitral Valve The mitral valve appears normal. There is no mitral valve regurgitation. There is no mitral valve stenosis. Pulmonic Valve The pulmonic valve is likely normal. Tricuspid Valve Normal tricuspid valve structure and function. There is trace tricuspid valve regurgitation. Normal right atrial pressure. There is no evidence of pulmonary hypertension. Great Vessels There is mild dilatation of the ascending aorta measuring 3.30 cm. The visualized portions of the pulmonary artery and branches are normal. Venous The inferior vena cava is normal in size and collapses greater than 50% with inspiration. Pericardium/Pleural There is no evidence of pericardial effusion. Prior Study Comparison No prior study available for comparison. Measurements 2D Linear Measurements IVSd: 0.88 0.6-0.9/0.6-1.0 cm LVIDd: 4.31 3.9-5.3/4.2-5.9 cm LVIDd Index: 2.38 2.4-3.2/2.2-3.1 cm/m2 LVIDs: 2.17 2.0-3.6 cm LVPWd: 0.77 0.7-1.1 cm LA Diam: 2.90 2.7-3.8/3.0-4.0 cm LAIDs Index: 1.60 1.5-2.3 cm/m2 LV Mass: 137.36 67-162/88-224 g LV Mass Index: 75.89 43-95/49-115 g/m2 LVOT Diam: 2.00 3.0+(-)1.3 cm 2D Systolic Function EF 4C: 56.00 >55% EF 2C: 58.80 >55% EF BiP: 58.10 >55% Mitral Valve MV Pk E: 0.68 MV PK A: 0.75 MV Decel Time: 162.00 E/A: 0.90 E'Lateral: 6.31 E'Medial: 5.44 E/E' Med: 12.40 E/E' Lat: 10.70 PHT: 47.00 MVA PHT: 4.68 Decel [place]: 4.19 Aortic Valve AoV Pk Jovon: 1.28 AoV Mn Jovon: 0.87 AoV VTI: 0.25 AoV Pk Grad: 7.00 Aov Mn Grad: 3.00 TRINITY Cont.VTI: 2.58 LVOT LVOT Pk Jovon: 0.89 LVOT Mn Jovon: 0.63 LVOT VTI: 0.20 LVOT Pk Grad: 3.00 LVOT Mn Grad: 2.00 LVOT Diam: 2.00 LVOT Area: 3.14 Diastolic Function MV Pk E: 0.68 MV Pk A: 0.75 E/A: 0.90 E'Medial: 5.44 E/E' Med: 12.40 E' Laterial: 6.31 E/E' Lat: 10.70 Right Ventricle TAPSE (mm): 18.80 TVS' Jovon: 10.40 Tricuspid Valve TR Pk Jovon: 1.95 TR Pk Grad: 15.00 RA Press: 3.00 RVSP: 18.00 Great Vessels Aorta Sinus of Valsalva: 3.33 2.0-3.[address] [place]: 2.52 1.7-3.4 cm Ao Asc: 3.30 2.1-3.4 cm Updated in Other Vendor System with Status of Final Alfie Early MD electronically signed on 02/01/2023 12:14:54 PM with status of Final
--- NOTE | 2023-01-30 08:53 | CA_ITS ---
Acquisition Time: 2023-01-30 09:52:01 Total Exercise Time: 00:07:01 Test Indications: ABN EKG Medications: SEE H Protocol: EDDI Max HR: 137 BPM 88% of Pred: 155 BPM Max BP: 140/064 mmHG Max Work Load: 8.5 METS Exercise stress test with exercise 7 min 1 sec of Eddi protocol, achieving 88% MPHR, with fatigue and request to stop, without anginal symptoms, without arrythmia, with normotensive response to exercise, without EKG changes meeting criteria for ischemia. Nuclear images pending. Test reviewed with Dr Early. Referred By: Mo Araya Overread By: ANNETTE ACEVES
== END ==
LOC: HO.CARD 08:49
PROVIDERS: PCP Internal Medicine; Visit Provider Internal Medicine Cardiovascular Disease
DX: R94.31 Abnormal electrocardiogram [ECG] [EKG] (principal)
CPT/HCPCS: 78452; 93017; 93306; 93356; A9500

== ENCOUNTER → 2023-03-30 14:54 | Outpatient (BNVA) | payer MEDICARE, OTHER, SELFPAY | PROVIDERS: PCP Internal Medicine; Referring Provider Internal Medicine; Visit Provider Internal Medicine Cardiovascular Disease | DX: I10 Essential (primary) hypertension (principal) | CPT/HCPCS: 99212 ==

== ENCOUNTER 2023-04-01 06:06 | Outpatient (REF) | payer MEDICARE, OTHER, SELFPAY ==
[2023-04-01 11:11] LABS: MANUAL DIFF FLAG NO
[2023-04-01 11:25] LABS: Basophils Absolute Auto 0.1 X10*3/uL (0.0-0.2); Basophils Percent Auto 0.7 % (0-2); Eosinophils Absolute Auto 0.2 X10*3/uL (0.0-0.4); Eosinophils Percent Auto 1.8 % (0-4); Hematocrit 42.3 % (37.0-47.0); Hemoglobin 13.6 g/dl (12.0-16.0); Imm Gran Abs Auto 0.02 X10*3/uL (0.00-0.03); Imm Gran Pct Auto 0.2 % (0.0-0.4); Lymphocytes Percent Auto 35.3 % (20-40); Mean Corpuscular HGB Conc 32.2 g/dl (31.0-35.0); Mean Corpuscular Hemoglobin 29.2 pg (27.0-33.0); Mean Corpuscular Volume 90.8 fL (80.0-98.0); Mean Platelet Volume 10.9 fL (9.4-12.3); Monocytes Absolute Auto 0.7 X10*3/uL (0.1-1.2); Monocytes Percent Auto 7.8 % (2-11); Neutrophils Absolute Auto 4.5 x10*3/uL (2.0-8.3); Neutrophils Percent Auto 54.2 % (45-73); Platelet Count 343 X10*3/uL (160-400); Red Blood Count 4.66 X10*6/uL (4.20-5.50); Red Cell Distribution Width 12.8 % (11.0-16.0); White Blood Count 8.4 X10*3/uL (4.8-10.8)
[2023-04-01 11:46] LABS: Alanine Aminotransferase 20 U/L (0-31); Albumin Level 4.1 g/dL (3.5-5.0); Alkaline Phosphatase 81 U/L (39-117); Anion Gap 12 (12-20); Aspartate Amino Transferase 15 U/L (5-31); Bilirubin Total 0.7 mg/dL (0.0-1.0); Blood Urea Nitrogen 24 mg/dL (9-16); Calcium 9.7 mg/dL (8.4-10.2); Carbon Dioxide 27 mmol/L (22-29); Chloride 107 mmol/L (96-108); Cholesterol 126 mg/dL; Estimated Glomerular Filt Rate 59; Glucose Random 157 mg/dL (60-115); HDL Cholesterol 40 mg/dL; LDL Cholesterol Calculated 66 mg/dl; Sodium 141 mmol/L (135-145); Total Protein 6.6 g/dL (6.5-8.0); Triglycerides 102 mg/dL
[2023-04-01 11:47] LABS: Estimated Average Glucose 151 mg/dL; Hemoglobin A1c % 6.9 %
[2023-04-01 12:07] LABS: Creatinine Urine 67.19 mg/dL; Microalbumin Urine < 5.0 mg/L
== END 2023-04-01 06:07 | disposition home or self-care (01) ==
LOC: HO.HMGCLDS 06:06
PROVIDERS: PCP Internal Medicine; Visit Provider Nurse Practitioner Adult Health
DX: E11.9 Type 2 diabetes mellitus without complications (principal)
CPT/HCPCS: 36415; 80053; 80061; 82043; 83036; 85025

== ENCOUNTER 2023-10-05 07:33 | Outpatient (REF) | payer MEDICARE, OTHER, SELFPAY | END 2023-10-05 07:34 | disposition home or self-care (01) | LOC: HO.MAMMO 07:33 | PROVIDERS: PCP Internal Medicine; Visit Provider Internal Medicine | DX: Z12.31 Encounter for screening mammogram for malignant neoplasm of breast (principal) | CPT/HCPCS: 77063; 77067 ==

== ENCOUNTER → 2023-10-05 07:45 | Outpatient (BNV) | payer MEDICARE, OTHER, SELFPAY | PROVIDERS: PCP Internal Medicine; Visit Provider Radiology Diagnostic Radiology | DX: Z12.31 Encounter for screening mammogram for malignant neoplasm of breast (principal) | CPT/HCPCS: 77063; 77067 ==

== ENCOUNTER 2023-10-13 06:02 | Outpatient (REF) | payer MEDICARE, OTHER, SELFPAY ==
[2023-10-13 11:24] LABS: MANUAL DIFF FLAG NO
[2023-10-13 11:31] LABS: Basophils Absolute Auto 0.1 X10*3/uL (0.0-0.2); Basophils Percent Auto 0.8 % (0-2); Eosinophils Absolute Auto 0.1 X10*3/uL (0.0-0.4); Hematocrit 41.2 % (37.0-47.0); Hemoglobin 13.4 g/dl (12.0-16.0); Imm Gran Abs Auto 0.02 X10*3/uL (0.00-0.03); Imm Gran Pct Auto 0.3 % (0.0-0.4); Lymphocytes Absolute Auto 2.7 X10*3/uL (1.2-4.9); Lymphocytes Percent Auto 37.9 % (20-40); Mean Corpuscular HGB Conc 32.5 g/dl (31.0-35.0); Mean Corpuscular Hemoglobin 29.2 pg (27.0-33.0); Mean Corpuscular Volume 89.8 fL (80.0-98.0); Mean Platelet Volume 10.7 fL (9.4-12.3); Monocytes Absolute Auto 0.6 X10*3/uL (0.1-1.2); Monocytes Percent Auto 7.8 % (2-11); Neutrophils Absolute Auto 3.6 x10*3/uL (2.0-8.3); Neutrophils Percent Auto 51.2 % (45-73); Platelet Count 311 X10*3/uL (160-400); Red Blood Count 4.59 X10*6/uL (4.20-5.50); Red Cell Distribution Width 12.6 % (11.0-16.0); White Blood Count 7.1 X10*3/uL (4.8-10.8)
[2023-10-13 11:37] LABS: Estimated Average Glucose 166 mg/dL; Hemoglobin A1c % 7.4 % (<6.0)
[2023-10-13 11:50] LABS: Alanine Aminotransferase 17 U/L (0-31); Alkaline Phosphatase 85 U/L (39-117); Anion Gap 11 (12-20); Aspartate Amino Transferase 18 U/L (5-31); Bilirubin Total 0.7 mg/dL (0.0-1.0); Blood Urea Nitrogen 18 mg/dL (9-16); Calcium 9.6 mg/dL (8.4-10.2); Carbon Dioxide 28 mmol/L (22-29); Chloride 107 mmol/L (96-108); Cholesterol 133 mg/dL (<200); Estimated Glomerular Filt Rate > 60; Glucose Random 140 mg/dL (60-115); HDL Cholesterol 40 mg/dL (>40); LDL Cholesterol Calculated 74 mg/dL (<100); Potassium 4.5 mmol/L (3.3-5.1); Sodium 141 mmol/L (135-145); Total Protein 6.7 g/dL (6.5-8.0); Triglycerides 97 mg/dL (<150)
[2023-10-13 12:36] LABS: Creatinine Urine 55.32 mg/dL; Microalbumin Urine < 5.0 mg/L
== END 2023-10-13 06:03 | disposition home or self-care (01) ==
LOC: HO.HMGCLDS 06:02
PROVIDERS: PCP Internal Medicine; Visit Provider Nurse Practitioner Adult Health
DX: E11.9 Type 2 diabetes mellitus without complications (principal)
CPT/HCPCS: 36415; 80053; 80061; 82043; 82570; 83036; 85025

== ENCOUNTER 2024-04-11 06:05 | Outpatient (REF) | payer MEDICARE, OTHER, SELFPAY ==
[2024-04-11 10:22] LABS: MANUAL DIFF FLAG NO
[2024-04-11 10:30] LABS: Basophils Absolute Auto 0.1 X10*3/uL (0.0-0.2); Basophils Percent Auto 0.7 % (0-2); Eosinophils Absolute Auto 0.2 X10*3/uL (0.0-0.4); Hematocrit 41.9 % (37.0-47.0); Hemoglobin 13.6 g/dl (12.0-16.0); Imm Gran Abs Auto 0.06 X10*3/uL (0.00-0.03); Imm Gran Pct Auto 0.7 % (0.0-0.4); Lymphocytes Absolute Auto 3.3 X10*3/uL (1.2-4.9); Lymphocytes Percent Auto 37.1 % (20-40); Mean Corpuscular HGB Conc 32.5 g/dl (31.0-35.0); Mean Corpuscular Hemoglobin 29.3 pg (27.0-33.0); Mean Corpuscular Volume 90.3 fL (80.0-98.0); Mean Platelet Volume 10.1 fL (9.4-12.3); Monocytes Absolute Auto 0.6 X10*3/uL (0.1-1.2); Monocytes Percent Auto 6.8 % (2-11); Neutrophils Absolute Auto 4.7 x10*3/uL (2.0-8.3); Neutrophils Percent Auto 52.7 % (45-73); Platelet Count 388 X10*3/uL (160-400); Red Blood Count 4.64 X10*6/uL (4.20-5.50); Red Cell Distribution Width 12.9 % (11.0-16.0); White Blood Count 8.9 X10*3/uL (4.8-10.8)
[2024-04-11 10:47] LABS: Alanine Aminotransferase 19 U/L (0-31); Albumin Level 4.2 g/dL (3.5-5.0); Alkaline Phosphatase 88 U/L (39-117); Anion Gap 13 (12-20); Aspartate Amino Transferase 18 U/L (5-31); Bilirubin Total 0.6 mg/dL (0.0-1.0); Blood Urea Nitrogen 20 mg/dL (9-16); Carbon Dioxide 27 mmol/L (22-29); Chloride 106 mmol/L (96-108); Cholesterol 128 mg/dL (<200); Estimated Glomerular Filt Rate > 60; Glucose Random 104 mg/dL (60-115); HDL Cholesterol 38 mg/dL (>40); LDL Cholesterol Calculated 68 mg/dL (<100); Potassium 4.8 mmol/L (3.3-5.1); Sodium 141 mmol/L (135-145); Total Protein 7.1 g/dL (6.5-8.0); Triglycerides 110 mg/dL (<150)
[2024-04-11 11:06] LABS: Estimated Average Glucose 148 mg/dL; Hemoglobin A1c % 6.8 % (<6.0)
[2024-04-11 11:23] LABS: Creatinine Urine 86.22 mg/dL; Microalbumin Urine < 5.0 mg/L
== END 2024-04-11 06:06 | disposition home or self-care (01) ==
LOC: HO.HMGCLDS 06:05
PROVIDERS: PCP Internal Medicine; Visit Provider Nurse Practitioner Adult Health
DX: E11.9 Type 2 diabetes mellitus without complications (principal)
CPT/HCPCS: 36415; 80053; 80061; 82043; 82570; 83036; 85025

== ENCOUNTER 2024-05-02 08:00 | Outpatient (REF) | payer MEDICARE, OTHER, SELFPAY ==
--- NOTE | ~2024-05-02 | US_ITS ---
EXAMINATION: US RETROPERITONEAL LIMITED (AORTA) CLINICAL INFORMATION: Ascending aortic aneurysm: family history of AAA. AAA screening.. COMPARISON: None available. TECHNIQUE: Lyles-scale, color Doppler and spectral Doppler evaluation of the abdominal aorta. FINDINGS: The aorta is normal. The measurements of the aorta in maximum AP and transverse dimensions respectively are as follows: Proximal: 2.1 x 2.0 cm. Mid: 2.4 x 1.9 cm. Distal: 1.7 x 1.0 cm. PSV: 79.0 cm/s. The measurements of the common iliac arteries in maximum AP and TRV dimensions are as follows: Right Common Iliac Artery: 1.1 x 1.1 cm. Left Common Iliac Artery: 1.0 x 1.1 cm. US/US abdominal aortic aneurysm IMPRESSION: Normal evaluation of the abdominal aorta.
== END 2024-05-02 08:01 | disposition home or self-care (01) ==
LOC: HO.US 08:00
PROVIDERS: PCP Internal Medicine; Visit Provider Nurse Practitioner Adult Health
DX: Z13.6 Encounter for screening for cardiovascular disorders (principal); Z82.49 Family history of ischemic heart disease and other diseases of the circulatory system
CPT/HCPCS: 76706

== ENCOUNTER 2024-09-01 13:57 | Outpatient (AMB) | payer MEDICARE, OTHER, SELFPAY ==
--- NOTE | 2024-09-01 13:59 | MHC.OFFVIS ---
Vital Signs 09/01/24 14:00 Height 5 ft 5 in Weight 158 lb 11.725 oz BMI 26.4 BP 124/68 Blood Pressure Location Lt brachial Position Sitting Pulse 86 Pulse Source Monitor Intake Visit Reasons: Follow up Allergies penicillin V Allergy (Intermediate, Verified 12/31/20 10:11) rash, hives, swollen lips Sulfa (Sulfonamide Antibiotics) Allergy (Intermediate, Verified 12/31/20 10:11) rash, hives, swollen lips Medication List - Last Reconciled 09/01/24 by Mo Araya MD atorvastatin 40 mg PO DAILY cholecalciferol (vitamin D3) (Vitamin D3) 25 mcg PO DAILY glipizide 5 mg PO DAILY hydrochlorothiazide 12.5 mg PO DAILY lisinopril 20 mg PO DAILY metformin ER 750 mg PO BID multivitamin 1 tab PO DAILY HPI Comments Details: Vanessa requested a follow-up visit today due to recent passing of her sister due to ischemic cardiac arrest. She had a sudden cardiac event at work and then subsequently was transferred to [facility] where cardiac catheterization revealed diffuse severe coronary artery disease. Patient's sister unfortunately . Patient is very emotional and is concerned about her own health given a strong family history for ischemic sudden cardiac that including her brother. Patient has had myocardial perfusion imaging last year which was within normal limits. Patient takes all her medications regularly. A blood pressures been well controlled. Diabetes under good control. She denies any exertional symptoms and has recently started exercising in his been swimming multiple laps without any exertional symptoms of chest pain or shortness of breath. She however still remains concerned about ischemic event. [facility] Medical History HTN (hypertension) Diabetes Elevated cholesterol Surgical History H/O colonoscopy History of Hx of appendectomy Hx of total hysterectomy with removal of both tubes and ovaries Family History Father CAD (coronary artery disease) AAA (abdominal aortic aneurysm) Mother Colon cancer Brother CAD (coronary artery disease) Colon cancer Brother CAD (coronary artery disease) Social History Alcohol intake: never Patient Tobacco Use Status: Never used Tobacco Review of Systems Const Denies weakness ENT Denies dizziness Card Denies chest pain, Denies chest pain with activity, Denies syncope, Denies rapid heart rate, Denies pedal edema, Denies edema, Denies leg edema, Denies lightheadedness, Denies palpitations, Denies dyspnea, Denies dyspnea on exertion and Denies orthopnea Resp Denies cough, Denies dyspnea and Denies dyspnea on exertion GI Denies hematochezia and Denies change in stool character Musc Denies abnormal gait, Denies muscle cramps, Denies muscle weakness, Denies numbness, Denies radiating pain into limb and Denies tingling Neuro Denies Abnormal speech present, Denies abnormal gait, Denies dizziness, Denies syncope, Denies numbness, Denies tingling and Denies weakness Endo Denies palpitations Physical Exam Vital Signs: Last Vital Signs Pulse 86 09/01/24 14:00 BP 124/68 09/01/24 14:00 BMI result Body Mass Index 26.4 Const General: cooperative, comfortable, no acute distress, alert, awake and well groomed Nutritional Appearance: average body habitus Limitations: no limitations Neck Neck: Yes trachea midline, Yes supple and Yes no JVD Resp Effort & Inspection: normal respiratory effort Auscultation: clear to auscultation bilaterally Cardio Jugular venous distension: no JVD Palpation: normal PMI Rate: regular rate Rhythm: regular rhythm Heart sounds: S1 normal heart sound present, S2 normal heart sound present, no click, no gallops, no murmurs and no rubs Neuro Speech: No Abnormal speech present Psych Appearance: grossly normal Office Procedures EKG Details: EKG shows normal sinus rhythm with low-voltage QRS with no ischemic changes. [id number], Complete Assessment & Plan Assessment & Plan (1) HTN (hypertension): Code(s): I10 - Essential (primary) hypertension Category: Medical Plan: Multiple risk factors for ischemic heart disease including her history of hypertension, diabetes, hyperlipidemia, family history of premature atherosclerotic events as well as her age. She currently has no exertional symptoms. I suggest her to undergo a treadmill stress test to evaluate for silent myocardial ischemia. If this is within normal limits at high workload that will pursue further screening and prognostication with coronary calcium score. This was discussed with her. Rationale for each test was discussed with her. She understands and agrees. Further treatment based on the findings of the test results. Meanwhile she is on good medical therapy and risk for atherosclerotic event is extremely low and this was discussed with her. Continue target goal LDL less than 70 mg/dL given her risk factors of diabetes and hypertension. Continue high-intensity statin therapy. Blood pressure is currently well optimized. Continue aggressive diabetes management through your office with goal hemoglobin A1c less than 7%. Will follow up in the clinic after above-mentioned test if need be. Thank you for allowing me to partake in his care Orders: Orders CA stress test Today I10 - Essential (primary) hypertension, Z82.49 - Family history of ischemic heart disease and other diseases of the circulatory system CT Coronary Calcium Score 1 Month I10 - Essential (primary) hypertension Coding Level of Care Code Est Pt Level 4 (73034) Complex EM visit Add On G2211 Diagnoses HTN (hypertension) I10 CPT Codes EKG - CPT: 24275-[id number], Complete ([id number])
[2024-09-01 14:00] VITALS: BP 124/68; PULSE 86; BMI 26.4
== END 2024-09-01 14:41 | disposition home or self-care (01) ==
LOC: HO.HCS 13:58
PROVIDERS: PCP Internal Medicine; Visit Provider Internal Medicine Cardiovascular Disease
DX: I10 Essential (primary) hypertension (principal)
CPT/HCPCS: 93010; 99214; G2211

== ENCOUNTER → 2024-09-01 13:57 | Outpatient (BNVA) | payer MEDICARE, OTHER, SELFPAY | PROVIDERS: PCP Internal Medicine; Visit Provider Internal Medicine Cardiovascular Disease | DX: I10 Essential (primary) hypertension (principal) | CPT/HCPCS: 93005; 99212 ==

== ENCOUNTER → 2024-09-08 10:02 | Outpatient (REF) | payer MEDICARE, OTHER, SELFPAY ==
--- NOTE | 2024-09-08 10:09 | CA_ITS ---
Acquisition Time: 2024-09-08 10:12:16 Total Exercise Time: 00:07:31 Test Indications: htn, hx cad Medications: see h Protocol: EDDI Max HR: 141 BPM 92% of Pred: 153 BPM Max BP: 170/060 mmHG Max Work Load: 9.3 METS Exercise Stress Test with exercise 7 min 31secs of Eddi Protocol, achieving 92% MPHR, without any anginal symptoms, without any arrythmias, with normotensive response to exercise. Borderline ST changes to the EKG in Lead II only. Test reviewed with Dr. Early. Referred By: Mo Araya Overread By: ANNETTE ACEVES
== END ==
LOC: HO.CARD 10:02
PROVIDERS: PCP Internal Medicine; Visit Provider Internal Medicine Cardiovascular Disease
DX: I10 Essential (primary) hypertension (principal); Z82.49 Family history of ischemic heart disease and other diseases of the circulatory system
CPT/HCPCS: 93017

== ENCOUNTER → 2024-09-08 10:09 | Outpatient (BNV) | payer MEDICARE, OTHER, SELFPAY | PROVIDERS: PCP Internal Medicine; Visit Provider Nurse Practitioner Family | DX: I10 Essential (primary) hypertension (principal) | CPT/HCPCS: 93016; 93018 ==

== ENCOUNTER 2024-10-12 15:02 | Outpatient (REF) | payer MEDICARE, OTHER, SELFPAY ==
--- OUTSIDE RECORDS SUMMARY | 2024-10-12 15:37 | XMS_ITS | Continuity of Care Document ---
Author Organization [facility] Address [address] [place] [address]- Care Team Providers Care Register Of Wills Name Role Phone Julien Sun MD Primary Care Physician [phone] Encounter 09/19/24 - 09/26/24 [facility] [address], [address] [place] [address]- Attending Physician: Mo Araya MD Admitting Physician: Mo Araya MD Referring Physician: Mo Araya MD Encounter Type: OutPatient One Time Allergies, Adverse Reactions, Alerts Substance Criticality Severity Reaction Reaction Severity Status penicillin Active sulfa drugs Active Latex 1 Active 1contact dermatitis reaction Immunizations Given and Recorded Vaccine Date Status Refusal Reason SARS-CoV-2 mRNA ([id number]) vax 1 08/18/23 Recorded Influenza Virus Vaccine (oldterm) 08/04/23 Recorde d Influenza Virus Vaccine (oldterm) 2 07/16/23 Recor ded Influenza Virus Vaccine (oldterm) 07/29/22 Recorde d Influenza Virus Vaccine (oldterm) 08/09/20 Recorde d Influenza Virus Vaccine (oldterm) 07/10/19 Recorde d nirsevimab (cvx 306) 3 07/30/23 Recorded [id number] 12y+ bivalent booster vax 09/13/22 Recorded pneumococcal 13-valent vaccine 4 03/13/22 Recorded pneumococcal 20-valent conjugate vaccine 03/13/22 Recorded SARS-CoV-2 (COVID-19) mRNA BNT-162b2 vac 02/07/22 Recorded SARS-CoV-2 (COVID-19) mRNA BNT-162b2 vac 06/09/21 Recorded SARS-CoV-2 (COVID-19) mRNA BNT-162b2 vac 03/09/21 Recorded SARS-CoV-2 (COVID-19) mRNA BNT-162b2 vac 11/06/20 Recorded influenza virus vaccine, inactivated 07/03/21 Jerry rded influenza virus vaccine, inactivated 5 07/08/16 Gi sanket influenza virus vaccine, inactivated 6 08/09/15 Gi sanket influenza virus vaccine, inactivated 7 07/25/15 Re corded Zoster Vaccine Live 06/23/19 Recorded Zoster Vaccine Live 04/12/19 Recorded Zoster Vaccine Live 09/27/12 Given Afluria (oldterm) 07/18/18 Recorded tetanus/diphtheria/pertussis, acel(Tdap) 09/12/16 Recorded tetanus/diphtheria/pertussis, acel(Tdap) 12/03/05 Given pneumococcal 23-valent vaccine 09/28/08 Given Hepatitis A Adult Vaccine 05/05/98 Given Hepatitis A Adult Vaccine 12/11/97 Given hepatitis B adult vaccine 01/07/93 Given hepatitis B adult vaccine 08/10/92 Given hepatitis B adult vaccine 07/11/92 Given Poliovirus Vaccine, Inactivated 02/01/74 Given Typhoid Vaccine, Inactivated 02/01/74 Given 1Result Comment: Pt reported receiving COVID Bivalent 2Result Comment: Pt reported receiving FLU shot 3Result Comment: Pt reported receiving RSV 4Result Comment: Pt reported receiving PCV20 5Admin Note[facility] 6[facility] Note[facility] 7Result Comment: [07/26/2015] [facility] atorvastatin 40 mg oral tablet 1 tablet, By Mouth, Daily, # 90 tablet, 1 Refills, Maintenance, 04/18/24 2:08:00 PM EDT, [id number], 165, cm, 04/18/24 13:49:00 EDT, Height Start Date: 04/18/24 Status: Ordered Quantity: 90.0 Unit: tablet Repeat number: 2 citirizine OC for allergies citirizine OC for allergies, Refills 0, Maintenance, 03/20/21 11:45:00 AM EDT, Supply Start Date: 03/20/21 Status: Ordered Repeat number: 1 glipiZIDE 10 mg oral tablet, extended release 1 tablet = 10 mg, By Mouth, Daily, # 90 tablet, 1 Refills, Maintenance, 04/18/24 2:08:00 PM EDT, ER Tablet, [id number], Partial fill upon patient request if the prescription is for a schedule II opioid drug., 165, cm, 04/18/24 13:49:00 EDT, Height Start Date: 04/18/24 Status: Ordered Quantity: 90.0 Unit: tablet Repeat number: 2 hydrochlorothiazide 12.5 mg oral tablet 1 tablet, By Mouth, Daily, # 90 tablet, 3 Refills, Maintenance, 07/04/24 2:18:00 PM EDT, [id number], 165, cm, 04/18/24 13:49:00 EDT, Height Start Date: 07/04/24 Status: Ordered Quantity: 90.0 Unit: tablet Repeat number: 1 lisinopril 20 mg oral tablet 1, tablet, By Mouth, Daily, # 90 tablet, Refills 1, Tot. Refills 1, Maintenance, 04/18/24 2:08:00 PMEDT, Route to Pharmacy Electronically, [id number], 165, cm, 04/18/24 13:49:00 EDT, Height Start Date: 04/18/24 Status: Ordered Quantity: 90.0 Unit: tablet Repeat number: 2 metFORMIN 750 mg oral tablet, extended release 2 tablet, By Mouth, Daily, # 180 tablet, 1 Refills, Maintenance, 04/18/24 2:08:00 PM EDT, [id number], 165, cm, 04/18/24 13:49:00 EDT, Height Start Date: 04/18/24 Status: Ordered Quantity: 180.0 Unit: tablet Repeat number: 2 Verio One Touch Glucometer Verio One Touch Glucometer, See Instructions, # 1 each, Refills 0, Tot. Refills 0, Maintenance, Dx:Diabetes type 2 (E11.9) Use to check blood sugars once a day, 10/23/23 3:54:00 PM EST, Supply, 165,cm, 10/22/23 7:45:00 EST, Height Start Date: 10/23/23 Status: Ordered Quantity: 1.0 Unit: each Repeat number: 1 Verio One Touch Lancets 33 gauge Verio One Touch Lancets 33 gauge, See Instructions, # 100 each, Refills 11, Tot. Refills 11, Maintenance, Dx: Diabetes type 2 (E11.9) Use to check blood sugars once a day, 11/02/23 11:32:00 AM EST, Supply, 165, cm, 10/22/23 7:45:00 EST, Height Start Date: 11/02/23 Status: Ordered Quantity: 100.0 Unit: each Repeat number: 12 Verio One Touch Test Strips Verio One Touch Test Strips, See Instructions, # 100 each, Refills 11, Tot. Refills 11, Maintenance, Dx: Diabetes type 2 (E11.9) Use to check blood sugars once a day, 10/23/23 3:53:00 PM EST, Supply,165, cm, 10/22/23 7:45:00 EST, Height Start Date: 10/23/23 Status: Ordered Quantity: 100.0 Unit: each Repeat number: 12 Problem List Condition Confirmation Course Effective Dates Status H ealth Status Informant Atrophic vaginitis Confirmed Active Benign hypertension Confirmed Active Family history of abdominal aortic aneurysm (AAA) Confirmed Active Foot pain, bilateral Confirmed Active History of palpitations Confirmed Active Hyperlipidemia Confirmed Active Osteopenia Confirmed Active Knee pain Confirmed Active Recurrent cystitis Confirmed Active Type 2 diabetes Confirmed Active Results Radiology Reports * Exam Date Time Procedure Performing Provider Status 09/19/24 11:[address] Heart W/O Dye Onesimo Eval Román Kang; Auth (Verified) Notes: (CT Heart W/O Dye Onesimo Eval) Reason For Exam: HYPERTENSION RESULT: CT Heart W/O Dye Onesimo Eval CT Heart W/O Dye Onesimo Eval INDICATION: Hypertension; Female of age 69 years, race White COMPARISON: None TECHNIQUE: Coronary artery Calcium Scoring. After a localizing force dispatcher image was obtained, an ECG-gated noncontrast exam was obtained of the heart in late diastole. The region of interest was limited to the heart in order to optimize image quality. Weight-based protocol using automatic tube modulation was used to optimize exposure parameters. A [employer] 64 scanner was used, with Agatston scoring performed using [employer] web-based software. This procedure is not being performed on thispatient for preoperative evaluation for low-risk surgery within 30 days. CTDIvol Body: 7.73 mGy, DLP Body: 116 mGy*cm. FINDINGS: Coronary Calcium Scoring Summary: Left Main: Score 0. LAD: Score 52.1. Circumflex: Score 40.4. Right: Score 0. TOTAL: Score 92.5. Non-coronary Findings: No significant findings. IMPRESSION: The Agatston coronary calcium score is 92.5. The Multi-Ethnic Study of Atherosclerosis (HERNÁNDEZ) trial on-line calculator can be used to determine the probability of having coronary calcification and the calcium score percentile for subjects basedon age, gender and race/ethnicity who are free of clinical cardiovascular disease and treated diabetes: http://www.hernández-nhlbi.org/Calcium/input.aspx Within this cohort, the probability of having coronary calcification is 52 %. The observed calcium score is at the 77 percentile. I have personally reviewed the images and I agree with this report. WSN: [id number] Ordering Physician: Mo Araya Dictated By: Blaine Mullins MD Dictated Date/Time: 09/20/24 12:52 p Reviewed By: Madhu García MD Signed By: Madhu García MD Signed Date/Time: 09/20/24 12:57 pm Transcribed By: MARGIE Transcribed Date/Time: 09/20/24 11:20 am Social History Social History Type Response Smoking Status Never smoker entered on: 08/31/17 Sex Sex Representation Female (finding) Patient Care team information Care Team Personnel Name: Julien Sun MD Position: [facility] Physician - Primary Care Member Role: PCP Address: [address] [place] [id number] Telecom: Care Team Related Persons Name: Macrina PEARL Name: JONNY PEARL Insurance Providers Guarantor name: MERLIN JANELL PEARL Health Plan Information #: 2 Payer: [facility] Member Number: [id number] Policy Number: NA Group Number: [id number] Health Plan Information #: 1 Payer: [employer] Member Number: [id number] Policy Number: NA Group Number: NA
== END 2024-10-12 15:03 | disposition home or self-care (01) ==
LOC: HO.MAMMO 15:02
PROVIDERS: PCP Internal Medicine; Visit Provider Internal Medicine
DX: Z12.31 Encounter for screening mammogram for malignant neoplasm of breast (principal)
CPT/HCPCS: 77063; 77067

== ENCOUNTER → 2024-10-12 15:30 | Outpatient (BNV) | payer MEDICARE, OTHER, SELFPAY | PROVIDERS: PCP Internal Medicine; Visit Provider Internal Medicine | DX: Z12.31 Encounter for screening mammogram for malignant neoplasm of breast (principal) | CPT/HCPCS: 77063; 77067 ==

== ENCOUNTER 2024-11-15 06:13 | Outpatient (REF) | payer MEDICARE, OTHER, SELFPAY ==
--- OUTSIDE RECORDS SUMMARY | 2024-11-15 06:17 | XMS_ITS | Continuity of Care Document ---
Author Organization [facility] Tushar lt Address [address] [place] [address]- Care Team Providers Care Educational Aid Name Role Phone Julien Sun MD Primary Care Physician Encounter [facility] Date(s): 10/04/24 - 11/03/24 [facility] Adult [address] [place] [address]- Encounter Type: Triage Allergies, Adverse Reactions, Alerts Substance Criticality Severity Reaction Reaction Severity Status penicillin Active sulfa drugs Active Latex 1 Active 1contact dermatitis reaction Immunizations Given and Recorded Vaccine Date Status Refusal Reason SARS-CoV-2 mRNA (gigyuwf-mkgq-ijdej) vax 1 08/18/23 Recorded Influenza Virus Vaccine (oldterm) 08/04/23 Recorde d Influenza Virus Vaccine (oldterm) 2 07/16/23 Recor ded Influenza Virus Vaccine (oldterm) 07/29/22 Recorde d Influenza Virus Vaccine (oldterm) 08/09/20 Recorde d Influenza Virus Vaccine (oldterm) 07/10/19 Recorde d nirsevimab (cvx 306) 3 07/30/23 Recorded [id number] 12y+ bivalent booster vax 09/13/22 Recorded pneumococcal [...] [facility] 6Admin Note: [facility] 7[facility] Comment: [07/26/2015] [facility] Medications atorvastatin 40 mg oral tablet 1 tablet, By Mouth, Daily, # 90 tablet, 1 Refills, Maintenance, 10/04/24 4:06:00 PM EST, [facility]/pharmacy #[id number], 165, cm, 04/18/24 13:49:00 EDT, Height Start Date: 10/04/24 Status: Ordered Quantity: 90.0 Unit: tablet Repeat number: 2 citirizine OC for allergies citirizine OC for allergies, Refills 0, Maintenance, 03/20/21 11:45:00 AM EDT, Supply Start Date: 03/20/21 Status: Ordered Repeat number: 1 glipiZIDE 10 mg oral tablet, extended release 1 tablet = 10 mg, By Mouth, Daily, # 90 tablet, 1 Refills, Maintenance, 04/18/24 2:08:00 PM EDT, ER Tablet, [facility]/pharmacy #[id number], Partial fill upon patient request if the prescription is for a schedule II opioid drug., 165, cm, 04/18/24 13:49:00 EDT, Height Start Date: 04/18/24 Status: Ordered Quantity: 90.0 Unit: tablet Repeat number: 2 hydrochlorothiazide 12.5 mg oral tablet 1 tablet, By Mouth, Daily, # 90 tablet, 3 Refills, Maintenance, 07/04/24 2:18:00 PM EDT, [id number], 165, cm, 04/18/24 13:49:00 EDT, Height Start Date: 07/04/24 Status: Ordered Quantity: 90.0 Unit: tablet Repeat number: 1 lisinopril 20 mg oral tablet 1, tablet, By Mouth, Daily, # 90 tablet, Refills 1, Tot. Refills 1, Maintenance, 10/04/24 4:13:00 PM EST, Route to Pharmacy Electronically, [facility]/pharmacy #[id number], 165, cm, 04/18/24 13:49:00 EDT, Height Start Date: 10/04/24 Status: Ordered Quantity: 90.0 Unit: tablet Repeat number: 2 metFORMIN 750 mg oral tablet, extended release 2 tablet, By Mouth, Daily, # 180 tablet, 1 Refills, Maintenance, 10/04/24 4:08:00 PM EST, [facility]/pharmacy #[id number], 165, cm, 04/18/24 13:49:00 EDT, Height Start Date: 10/04/24 Status: Ordered Quantity: 180.0 Unit: tablet Repeat [...] Confirmed Active Type 2 diabetes Confirmed Active Social History Social History Type Response Smoking Status Never smoker entered on: 08/31/17 Sex Sex Representation Female (finding) Patient Care team information Care Team Personnel Name: Julien Sun MD Position: [facility] Physician - Primary Care Member Role: PCP Address: [address] [place] [id number] Telecom: Care Team Related Persons Name: Macrina PEARL Name: JONNY PEARL Insurance Providers Guarantor name: MERLIN PEARL Health Plan Information #: 1 Payer: [employer]: ADVANCED PAYMENT EXAM Member Number: NA Policy Number: NA Group Number: NA Health Plan Information #: 2 Payer: [facility] [place] Member Number: NA Policy Number: NA Group Number: NA
--- OUTSIDE RECORDS SUMMARY | 2024-11-15 06:17 | XMS_ITS | Continuity of Care Document ---
Author Organization [facility] Tushar lt Address [address] [place] [address]- Care Team Providers Care Manager Er Name Role Phone Julien Sun MD Primary Care Physician [phone] Encounter [facility] Date(s): 10/04/24 - 11/03/24 [facility] Adult [address] [place] [address]- Encounter Type: Triage Allergies, Adverse Reactions, Alerts Substance Criticality Severity Reaction Reaction Severity Status penicillin Active sulfa drugs Active Latex 1 Active 1contact dermatitis reaction Immunizations Given and Recorded Vaccine Date Status Refusal Reason SARS-CoV-2 mRNA (ccgqfaf-wasq-gfisw) vax 1 08/18/23 Recorded Influenza Virus Vaccine (oldterm) 08/04/23 Recorde d Influenza Virus Vaccine (oldterm) 2 07/16/23 Recor ded Influenza Virus Vaccine (oldterm) 07/29/22 Recorde d Influenza Virus Vaccine (oldterm) 08/09/20 Recorde d Influenza Virus Vaccine (oldterm) 07/10/19 Recorde d nirsevimab (cvx 306) 3 07/30/23 Recorded [id number] 12y+ bivalent booster vax 09/13/22 Recorded pneumococcal [...] [facility] 6Admin Note: [facility] 7[facility] Comment: [07/26/2015] [facility] Medications atorvastatin 40 mg oral tablet 1 tablet, By Mouth, Daily, # 90 tablet, 1 Refills, Maintenance, 10/04/24 4:06:00 PM EST, [facility]/pharmacy #[id number], 165, cm, 04/18/24 13:49:00 EDT, Height [...] Maintenance, 04/18/24 2:08:00 PM EDT, ER Tablet, [facility]/pharmacy #[id number], Partial fill upon patient request if the prescription is for a schedule II opioid drug., 165, cm, 04/18/24 13:49:00 EDT, Height Start Date: 04/18/24 Status: Ordered Quantity: 90.0 Unit: tablet Repeat number: 2 hydrochlorothiazide 12.5 mg oral tablet 1 tablet, By Mouth, Daily, # 90 tablet, 3 Refills, Maintenance, 07/04/24 2:18:00 PM EDT, [id number], 165, cm, 04/18/24 13:49:00 EDT, Height Start Date: 07/04/24 Status: Ordered Quantity: 90.0 Unit: tablet Repeat number: 1 lisinopril 20 mg oral tablet 1, tablet, By Mouth, Daily, # 90 tablet, Refills 1, Tot. Refills 1, Maintenance, 10/04/24 4:13:00 PM EST, Route to Pharmacy Electronically, [facility]/pharmacy #[id number], 165, cm, 04/18/24 13:49:00 EDT, Height Start Date: 10/04/24 Status: Ordered Quantity: 90.0 Unit: tablet Repeat number: 2 metFORMIN 750 mg oral tablet, extended release 2 tablet, By Mouth, Daily, # 180 tablet, 1 Refills, Maintenance, 10/04/24 4:08:00 PM EST, [facility]/pharmacy #[id number], 165, cm, 04/18/24 13:49:00 EDT, Height [...] Team Personnel Name: Julien Sun MD [facility] Physician - Primary Care Member Role: PCP Address: [address] [place] [id number] Telecom: Care Team Related Persons Name: Macrina PEARL Name: JONNY PEARL Insurance Providers Guarantor name: MERLIN PEARL Health Plan Information #: 1 Payer: [employer]: ADVANCED PAYMENT EXAM Member Number: NA Policy Number: NA Group Number: NA Health Plan Information #: 2 Payer: [facility] [place] Member Number: NA Policy Number: NA Group Number: NA
--- OUTSIDE RECORDS SUMMARY | 2024-11-15 06:17 | XMS_ITS | Continuity of Care Document ---
Author Organization [facility] Address [address] [facility] [place] [address]- Care Team Providers Care Lace Paper Machine Operator Name Role Phone Mo Araya MD Primary Care Physician Encounter 09/01/24 - 10/19/24 [facility] [address], [address] [place] [address]- us Attending Physician: Mo Araya MD Admitting Physician: Mo Araya MD Referring Physician: Mo Araya MD Encounter Type: Pre-Outpt Patient Care team information Care Team Personnel Name: Mo Araya MD Position: [facility] Cardiology MD Member Role: PCP Address: [address] [place] [address] [place] [address] HB Telecom: Insurance Providers Guarantor name: MERLIN PEARL Health Plan Information #: 1 Payer: [employer]: ADVANCED PAYMENT EXAM Member Number: [id number] Policy Number: NA Group Number: NA Health Plan Information #: 2 Payer: [employer]: ADVANCED PAYMENT EXAM Member Number: [id number] Policy Number: NA Group Number: NA
--- OUTSIDE RECORDS SUMMARY | 2024-11-15 06:17 | XMS_ITS | Continuity of Care Document ---
Author Organization [facility] Tushar lt Address [address] [place] [address]- Care Team Providers Care Medical Research Assistant Name Role Phone Julien Sun MD Primary Care Physician [phone] Encounter [facility] Date(s): 10/04/24 - 11/03/24 [facility] [place] Adult [address] [place] [address]- Encounter Type: Triage Allergies, Adverse Reactions, Alerts Substance Criticality Severity Reaction Reaction Severity Status penicillin Active sulfa drugs Active Latex 1 Active 1contact dermatitis reaction Immunizations Given and Recorded Vaccine Date Status Refusal Reason SARS-CoV-2 mRNA (umbjzpc-prxj-jloqw) vax 1 08/18/23 Recorded Influenza Virus Vaccine (oldterm) 08/04/23 Recorde d Influenza Virus Vaccine (oldterm) 2 07/16/23 Recor ded Influenza Virus Vaccine (oldterm) 07/29/22 Recorde d Influenza Virus Vaccine (oldterm) 08/09/20 Recorde d Influenza Virus Vaccine (oldterm) 07/10/19 Recorde d nirsevimab (cvx 306) 3 07/30/23 Recorded [id number] 12y+ bivalent booster vax 09/13/22 Recorded pneumococcal [...] [facility] 6Admin Note: [facility] Comment: [07/26/2015] [facility] Medications atorvastatin 40 mg oral tablet 1 tablet, By Mouth, Daily, # 90 tablet, 1 Refills, Maintenance, 10/04/24 4:06:00 PM EST, [facility]/pharmacy #[id number], 165, cm, 04/18/24 13:49:00 EDT, Height [...] Maintenance, 04/18/24 2:08:00 PM EDT, ER Tablet, [facility]/pharmacy #[id number], Partial fill upon patient request if the prescription is for a schedule II opioid drug., 165, cm, 04/18/24 13:49:00 EDT, Height Start Date: 04/18/24 Status: Ordered Quantity: 90.0 Unit: tablet Repeat number: 2 hydrochlorothiazide 12.5 mg oral tablet 1 tablet, By Mouth, Daily, # 90 tablet, 3 Refills, Maintenance, 07/04/24 2:18:00 PM EDT, [id number], 165, cm, 04/18/24 13:49:00 EDT, Height Start Date: 07/04/24 Status: Ordered Quantity: 90.0 Unit: tablet Repeat number: 1 lisinopril 20 mg oral tablet 1, tablet, By Mouth, Daily, # 90 tablet, Refills 1, Tot. Refills 1, Maintenance, 10/04/24 4:13:00 PM EST, Route to Pharmacy Electronically, [facility]/pharmacy #[id number], 165, cm, 04/18/24 13:49:00 EDT, Height Start Date: 10/04/24 Status: Ordered Quantity: 90.0 Unit: tablet Repeat number: 2 metFORMIN 750 mg oral tablet, extended release 2 tablet, By Mouth, Daily, # 180 tablet, 1 Refills, Maintenance, 10/04/24 4:08:00 PM EST, [facility]/pharmacy #[id number], 165, cm, 04/18/24 13:49:00 EDT, Height [...] Team Personnel Name: Julien Sun MD Position: [facility] Physician - Primary Care Member Role: PCP Address: [address] [place] [id number] Telecom: Care Team Related Persons Name: Macrina PEARL Name: JONNY PEARL Insurance Providers Guarantor name: MERLIN PEARL Health Plan Information #: 1 Payer: [employer]: ADVANCED PAYMENT EXAM Member Number: NA Policy Number: NA Group Number: NA Health Plan Information #: 2 Payer: [facility] [place] Member Number: NA Policy Number: NA Group Number: NA
[2024-11-15 10:02] LABS: MANUAL DIFF FLAG NO
[2024-11-15 10:16] LABS: Basophils Percent Auto 0.2 % (0-2); Eosinophils Percent Auto 0.1 % (0-4); Hematocrit 40.5 % (37.0-47.0); Hemoglobin 13.6 g/dl (12.0-16.0); Imm Gran Abs Auto 0.06 X10*3/uL (0.00-0.03); Imm Gran Pct Auto 0.5 % (0.0-0.4); Lymphocytes Percent Auto 18.3 % (20-40); Mean Corpuscular HGB Conc 33.6 g/dl (31.0-35.0); Mean Corpuscular Hemoglobin 29.2 pg (27.0-33.0); Mean Corpuscular Volume 86.9 fL (80.0-98.0); Mean Platelet Volume 10.3 fL (9.4-12.3); Monocytes Absolute Auto 0.6 X10*3/uL (0.1-1.2); Monocytes Percent Auto 5.6 % (2-11); Neutrophils Absolute Auto 8.2 x10*3/uL (2.0-8.3); Neutrophils Percent Auto 75.3 % (45-73); Platelet Count 408 X10*3/uL (160-400); Red Blood Count 4.66 X10*6/uL (4.20-5.50); Red Cell Distribution Width 12.1 % (11.0-16.0); White Blood Count 10.9 X10*3/uL (4.8-10.8)
[2024-11-15 10:58] LABS: Estimated Average Glucose 166 mg/dL; Hemoglobin A1C 201.0445 umol/L; Hemoglobin A1c % 7.4 % (<6.0); Total Hemoglobin (HGBA1C) 3521.8884 umol/L
[2024-11-15 11:20] LABS: Alanine Aminotransferase 28 U/L (0-31); Albumin Level 4.1 g/dL (3.5-5.0); Alkaline Phosphatase 89 U/L (39-117); Anion Gap 14 (12-20); Aspartate Amino Transferase 23 U/L (5-31); Bilirubin Total 0.6 mg/dL (0.0-1.0); Blood Urea Nitrogen 24 mg/dL (9-16); Calcium 9.2 mg/dL (8.4-10.2); Carbon Dioxide 23 mmol/L (22-29); Chloride 104 mmol/L (96-108); Cholesterol 126 mg/dL (<200); Estimated Glomerular Filt Rate 59; Glucose Random 211 mg/dL (60-115); HDL Cholesterol 36 mg/dL (>40); LDL Cholesterol Calculated 74 mg/dL (<100); Potassium 3.9 mmol/L (3.3-5.1); Sodium 137 mmol/L (135-145); Total Protein 7.3 g/dL (6.5-8.0); Triglycerides 80 mg/dL (<150)
[2024-11-15 11:22] LABS: Creatinine Urine 109.86 mg/dL; Microalbum/Creatinine Ratio Ur 4.5 ug/mg cr (<30)
== END 2024-11-15 06:14 | disposition home or self-care (01) ==
LOC: HO.HMGCLDS 06:13
PROVIDERS: PCP Nurse Practitioner Adult Health; Visit Provider Nurse Practitioner Adult Health
DX: E11.9 Type 2 diabetes mellitus without complications (principal)
CPT/HCPCS: 36415; 80053; 80061; 82043; 82570; 83036; 85025

== ENCOUNTER 2024-12-21 13:50 | Outpatient (REF) | payer MEDICARE, OTHER, SELFPAY ==
--- NOTE | ~2024-12-21 | MM_ITS ---
EXAMINATION: DXA BONE DENSITY AXIAL HISTORY: Estrogen deficiency TECHNIQUE: [employer] Dual energy absorptiometry (DEXA) of the lumbar spine, total left hip, and femoral neck was performed. COMPARISON: Comparison is made with the prior examination dated 10/03/2022. FINDINGS: The bone mineral density of the lumbar spine is 1.001 with a T-score of -1.5, and a Z-score of -0.2. This represents a BMD change of -4.7% compared to the prior exam. This is statistically significant. The bone mineral density of the left total hip is 0.835 with a T-score of -1.4, and a Z-score of -0.3. This represents BMD change of 0.1% compared to the prior exam. This is not statistically significant. The bone mineral density of the left femoral neck is 0.762 with a T-score of -2.0, and a Z-score of -0.6. This represents BMD change of -1.6% compared to the prior exam. FRACTURE RISK: The FRAX index suggests a ten year probability of major osteoporotic fracture of 11.3%, and of hip fracture 1.9%. MM/XR DEXA axial skeleton IMPRESSION: Based on bone mineral density, and according to World Health Organization (WHO) criteria, the diagnosis is consistent with osteopenia. All bone density values are in grams per centimeter squared (g/cm2). Statistically, 68% of repeat scans fall within 1 SD (+/- 0.010 g/cm2 for AP spine L1-L4) and 1 SD (+/- 0.012 g/cm2 for femur total) FRAX is a trademark of the [employer] Met[employer] Bone Disease, a World Health Organization (WHO) Collaborating Center. Electronically signed by: Paul Banks MD 12/21/2024 02:23 PM [facility]
--- OUTSIDE RECORDS SUMMARY | 2024-12-21 17:01 | XMS_ITS | Continuity of Care Document ---
Author Organization [facility] Tushar lt Address [address] [place] [address]- Care Team Providers Care Property Field Adjuster Name Role Phone Corinne HAILE, Julien Schrader Primary Care Physician [phone] Encounter [facility] Date(s): 11/21/24 - 11/28/24 [facility] Adult [address] [place] [address]- Encounter Diagnosis Bronchitis(Discharge Diagnosis) - 11/21/24 Recurrent cystitis(Discharge Diagnosis) - 11/21/24 Benign hypertension(Discharge Diagnosis) - 11/21/24 Hyperlipidemia(Discharge Diagnosis) - 11/21/24 Family history of ventricular fibrillation(Discharge Diagnosis) - 11/21/24 Attending Physician: Felicitas Almaguer NP Referring Physician: Julien Sun MD Encounter Type: Office Visit Allergies, Adverse Reactions, Alerts Substance Criticality Severity Reaction Reaction Severity Status penicillin Active sulfa drugs Active Latex 1 Active 1contact dermatitis reaction Immunizations Given and Recorded Vaccine Date Status Refusal Reason SARS-CoV-2 mRNA (cgersqn-zpcw-deqml) vax 1 08/18/23 Recorded Influenza Virus Vaccine (oldterm) 08/04/23 Recorde d Influenza Virus Vaccine (oldterm) 2 07/16/23 Recor ded Influenza Virus Vaccine (oldterm) 07/29/22 Recorde d Influenza Virus Vaccine (oldterm) 08/09/20 Recorde d Influenza Virus Vaccine (oldterm) 07/10/19 Recorde d nirsevimab (cvx 306) 3 07/30/23 Recorded [id number] 12y+ bivalent booster vax 09/13/22 Recorded pneumococcal [...] 1 Refills, Maintenance, 10/04/24 4:06:00 PM EST, [id number], 165, cm, 04/18/24 13:49:00 EDT, [...] Daily, # 90 tablet, 1 Refills, Maintenance, 11/21/24 2:02:00 PM EST, ER Tablet, [facility]/pharmacy #[id number], Partial fill upon patient request if the prescription is for a schedule II opioid drug., 165, cm, 11/21/24 13:37:00 EST, Height Start Date: 11/21/24 Status: Ordered Quantity: 90.0 Unit: tablet Repeat number: 2 hydrochlorothiazide 12.5 mg oral tablet 1 tablet, By Mouth, Daily, # 90 tablet, 3 Refills, Maintenance, 07/04/24 2:18:00 PM EDT, [id number], 165, cm, 04/18/24 13:49:00 EDT, Height Start Date: 07/04/24 Status: Ordered Quantity: 90.0 Unit: tablet Repeat number: 1 lisinopril 20 mg oral tablet 1, tablet, By Mouth, Daily, # 90 tablet, Refills 1, Tot. Refills 1, Maintenance, 10/04/24 4:13:00 PM EST, Route to Pharmacy Electronically, [facility]/pharmacy #[id number], 165, cm, 04/18/24 13:49:00 EDT, Height Start Date: 10/04/24 Status: Ordered Quantity: 90.0 Unit: tablet Repeat number: 2 metFORMIN 750 mg oral tablet, extended release 2 tablet, By Mouth, Daily, # 180 tablet, 1 Refills, Maintenance, 10/04/24 4:08:00 PM EST, [facility]/pharmacy #[id number], 165, cm, 04/18/24 13:49:00 EDT, [...] of abdominal aortic aneurysm (AAA) Confirmed Active Family history of ventricular fibrillation Confirmed Active Foot pain, bilateral Confirmed Active History of palpitations Confirmed Active Hyperlipidemia Confirmed Active Osteopenia Confirmed Active Knee pain Confirmed Active Recurrent cystitis Confirmed Active Type 2 diabetes Confirmed Active Diagnosis Diagnosis Type Effective Dates Health Status Clinical Service Informant Bronchitis Discharge Diagnosis 11/21/24 Recurrent cystitis Discharge Diagnosis 11/21/24 Benign hypertension Discharge Diagnosis 11/21/24 Hyperlipidemia Discharge Diagnosis 11/21/24 Family history of ventricular fibrillation Discharge Diagnosis 11/21/24 Vital Signs Most recent to oldest [Reference Range]: 1 Height 165 cm (11/21/24 1:37 PM) Weight 75.6 kg (11/21/24 1:37 PM) Oxygen Saturation [94-100 %] 99 % (11/21/24 1:37 PM) Pulse Rate [55-90 bpm] 93 bpm *H* (11/21/24 1:37 PM) Body Mass Index [18.5-24.99 kg/m2] 27.77 kg/m2 *H* (11/21/24 1:37 PM) Blood Pressure [90-138/55-84 mm Hg] 108/ 60mm Hg (11/21/24 1:37 PM) Temperature [96.8-100.4 DegF] 97.7 DegF (11/21/24 1:37 PM) Mode of Delivery (Oxygen) Room air (11/21/24 1:37 PM) Blood pressure sites Arm, right (11/21/24 1:37 PM) Temperature Route Oral (11/21/24 1:37 PM) Weight Obtained Via Standing scale (11/21/24 1:37 PM) Social History Social History Type Response Smoking Status Never smoker entered on: 08/31/17 Sex Sex Representation Female (finding) Note * Hina Shaw: PERFORM Event Display: Patient Education/Instruction Authored Date: [id number] Ambulatory Adult Visit Summary [facility] Adult [facility] [address] [place] [id number] Name: MERLIN PEARL : 1955?? Visit: 11/21/2024 13:25?? Ambulatory Visit Instructions ?? Your Care Team Primary Care Provider Julien Sun MD? This Visit Provider Felicitas Almaguer NP Your Diagnosis Type 2 diabetes Vitals Signs Temperature: 97.7 DegF Height: 165 cm Pulse Rate:??93 bpm??High Weight: 75.6 kg Systolic Blood Pressure: 108 mm Hg Body Mass Index:??27.77 kg/m2??High Diastolic Blood Pressure: 60 mm Hg Body surface area: 1.86 Oxygen Saturation: 99 % ?? What to do next Follow-Up Appointments Follow Up with??Felicitas Almaguer NP When:??In 1 year Why: KRISH Where: [address] [place] [address]- Business (1) Future Orders Comprehensive Metabolic Panel - Routine, Once, 10/18/24 3:00:00 EST, Order for Today, [facility], Blood?? Lipid Panel - Routine, Once, 10/18/24 3:00:00 EST, Future Order, [facility], Blood?? CBC w/ Differential - Routine, Once, 10/18/24 3:00:00 EST, Future Order, [facility], Blood?? Microalbumin Urine - Routine, Urine, Once, 10/18/24 3:00:00 EST, [facility], Urine?? Hemoglobin A1C (Monitoring) - Routine, Once, 10/18/24 3:00:00 EST, Future Order, [facility], Blood?? Basic Metabolic Panel - Routine, Once, 07/04/24 14:17:00 EDT, Single or Recurring Future Order, [facility], Blood?? Comprehensive Metabolic Panel - Routine, Once, 02/19/25 3:00:00 EDT, Order for Today, [facility], Blood?? Lipid Panel - Routine, Once, 02/19/25 3:00:00 EDT, Future Order, [facility], Blood?? Microalbumin Urine - Routine, Urine, Once, 02/19/25 3:00:00 EDT, [facility], Urine?? Hemoglobin A1C (Monitoring) - Routine, Once, 02/19/25 3:00:00 EDT, Future Order, [facility], Blood?? Medications The list below reflects the information in our records and provided by you today along with any changes made during this visit. Please continue your medications until treatment is completed or stopped by your provider. If this is different from the information you have or there are other questions,please contact the prescribing provider. What How Much When Instructions Changed Miscellaneous Rx (citirizine OC for allergies) Unchanged Atorvastatin (atorvastatin 40 mg oral tablet) 1 tab(s) Oral Daily Unchanged Durable Medical Equipment (Verio One Touch Glucometer) See instructions Dx: Diabetes type 2 (E11.9) Use to check blood sugars once a day ?? Unchanged Durable Medical Equipment (Verio One Touch Lancets 33 gauge) See instructions Dx: Diabetes type 2 (E11.9) Use to check blood sugars once a day ?? Unchanged Durable Medical Equipment (Verio One Touch Test Strips) See instructions Dx: Diabetes type 2 (E11.9) Use to check blood sugars once a day ?? Unchanged GlipiZIDE (glipiZIDE 10 mg oral tablet, extended release) 1 tab(s) Oral Daily Pickup at [facility]/pharmacy #[id number] Unchanged Hydrochlorothiazide (hydrochlorothiazide 12.5 mg oral tablet) 1 tab(s) Oral Daily Unchanged Lisinopril (lisinopril 20 mg oral tablet) 1 tab(s) Oral Daily Unchanged Metformin (metFORMIN 750 mg oral tablet, extended release) 2 tab(s) Oral Daily Pharmacy Information [facility]/pharmacy #[id number]: [address] [place] [id number] [phone] Test Performed Below is a partial list of the tests performed during your Visit. You may have had other tests and procedures not included in this list. Please discuss all test results with your provider. Comprehensive Metabolic Panel?-- Results Pending -- Hemoglobin A1C (Monitoring)?-- Results Pending -- Lipid Panel?-- Results Pending -- Microalbumin Urine?-- Results Pending -- Medications and Immunizations Administered Medications Given During Visit No medications given during this visit.?? Allergies (NKA means No Known Allergies) Latex penicillin sulfa drugs Common Emergency Awareness Tips IS IT A STROKE? Act FAST and Check for these signs: FACE Does the face look uneven? ARM Does one arm drift down? SPEECH Does their speech sound strange? TIME Call at any sign of stroke ?? Heart Attack Signs Chest discomfort: Most heart attacks involve discomfort in the center of the chest and lasts more than a few minutes, or goes away and comes back. It can feel like uncomfortable pressure, squeezing, fullness or pain. Discomfort in upper body: Symptoms can include pain or discomfort in one or both arms, back, neck, jaw or stomach. Shortness of breath: With or without discomfort. Other signs: Breaking out in a cold sweat, nausea, or lightheaded. Remember, MINUTES DO MATTER. If you experience any of these heart attack warning signs, call to get immediate medical attention! ?? Smoking can increase your chances of developing chronic health problems and can cause harmful effects to other family members in your house. If you smoke, you are strongly encouraged to quit. Please call [email or web address] at [phone] or [phone] ([phone]) or log in to [email or web address] for referrals to smoking cessation programs. ?? The National Suicide Prevention Hotline is available 24/7 if you or someone you know needs to find a reason to keep living. By calling 1-967-206-vlov (2446) you'll be connected to a skilled, trained counselor at a crisis center in your area. [facility] Linkagoal Portal You can view and manage your care through the patient portal or by using a health care aliya of your choosing. [employer] is a website that allows you to securely view your medical information including your hospital discharge summary, office visit summaries, medications and follow-up visits. You can also request appointments, renew medications, and request access to your medical information using a health care aliya of your choosing, or just ask a question. You can enroll at [email or web address] or register during your next office visit. [facility], in keeping with [facility] guidance, no longer requires face masks for staff, patientsor visitors in most situations. Similiar to time spent indoors at other locations, there is the chance that you were exposed to repiratory viruses during your time with us (such as flu or COVID-19). If you develop symptoms concerning for a viral respiratory infection, please seek testing (and treatment if indicated) from your medical provider or home test kit. ?? Disclaimer: The information provided is of a general nature and is intended to be used in conjunction with the recommendations and advice of your health care practitioner. Every effort has been made to ensure that the information provided is accurate and complete at the time it is provided to you however, as your needs change, or, as new information becomes available, different or additional instructions may be required. ?? If you have questions, please consult with your primary care provider or pharmacist, as appropriate. This information is not intended to serve as substitution for assessment and evaluation by a qualified health care provider. If you do not have a primary care provider, you may find a [facility] provider by calling [facility] Linkagoal Link at [phone]. Patient Care team information Care Team Personnel Name: Julien Sun MD Position: S Physician - Primary Care Member Role: PCP Address: [address] [place] [address]- Telecom: Care Team Related Persons Name: Macrina PEARL Name: JONNY PEARL Insurance Providers Guarantor name: MERLIN JANELL PEARL Health Plan Information #: 2 Payer: [facility] Member Number: [id number] Policy Number: NA Group Number: [id number] Health Plan Information #: 1 Payer: MEDICARE PART B OUTPT Member Number: [id number] Policy Number: NA Group Number: NA
--- OUTSIDE RECORDS SUMMARY | 2024-12-21 17:01 | XMS_ITS | Patient Health Record ---
Author Organization [facility] Address [address] [place] [address] Care Team Providers Care Inspector Process Name Role Phone Oneyda HAILE, Aiden Primary Care Provider Shyam Crystal Jr Unavailable ALLERGIES Allergen (clinical drug ingredient) Drug/Non Drug Allergy documented on EMR Reaction Allergy Type Onset Date Status Sulfa Unknown Drug Allergy Active Penicillin Unknown Drug Allergy Active REASON FOR REFERRAL No Information MEDICATIONS Medication SIG (Take, Route, Frequency, Duration) Notes Start Date End Date Status MiraLax (colon prep) 8.3 oun ce ((238) grams mixed with Gatorade or Crystal Light orally begin at 5:00 p.m. the day before the procedure for 1 day 12/17/2020 Active Vitamin D3 Active glipiZIDE Active Atorvastatin Calcium Active Multivitamin Active Aspirin Active hydroCHLOROthiazide Active Lisinopril Active metFORMIN HCl Active IMMUNIZATIONS Vaccine Route Administration Date Status Comme nts Influenza Unknown 07/04/2020 Administered SOCIAL HISTORY Sex Assigned At : Social History Observation Description Sex Assigned At Unknown PROBLEMS Problem Type ICD Code Onset Dates Problem Status W/U Status Risk SNOMED Code Notes Problem Encounter for other preprocedural examination (Z01.818) Active confirmed 750561628 Problem Change in bowel habits (R19.4) Active confirmed 50385794 Problem residential (current) use of aspirin (Z79.82) Active confirmed 189786634160597 Problem Family history of colon cancer (Z80.0) Active confirmed 743745717 PLAN OF TREATMENT Future Test Test Name Order Date COLONOSCOPY 12/13/2015 COLONOSCOPY 12/17/2020 Insurance Providers Payer Name Payer Address Payer Phone Subscriber Number Group Number Insured Name Patient Relationship to Insured Coverage Start Date Coverage End Date [facility] [address] [facility], [place] [phone] [id number] MERLIN HAWKINS Self - patient is the insured MEDICAL (GENERAL) HISTORY Medical History History ICD Code colonoscopy 02/21/16, normal, five-year f ollowup recommended hypertension diabetes type II hyperlipidemia Surgical History Surgery Date(Month/Year) hysterectomy with oophorectomy Cesarian section x 2 appendectomy
--- OUTSIDE RECORDS SUMMARY | 2024-12-21 17:01 | XMS_ITS | Continuity of Care Document ---
Author Organization [facility] Address [address] [place] [address]- Care Team Providers Care Plan Rep Name Role Phone Julien Sun MD Primary Care Physician [place] [facility] [place](s): 10/27/24 - 11/26/24 [facility] [address] [place] [address]- Encounter Type: Triage Allergies, Adverse Reactions, Alerts Substance Criticality Severity Reaction Reaction Severity Status penicillin Active sulfa drugs Active Latex 1 Active 1contact dermatitis reaction Immunizations Given and Recorded Vaccine Date Status Refusal Reason SARS-CoV-2 mRNA ([id number]) vax 1 08/18/23 Recorded Influenza Virus Vaccine (oldterm) 08/04/23 Recorde d Influenza Virus Vaccine (oldterm) 2 07/16/23 Recor ded Influenza Virus Vaccine (oldterm) 07/29/22 Recorde d Influenza Virus Vaccine (oldterm) 08/09/20 Recorde d Influenza Virus Vaccine (oldterm) 07/10/19 Recorde d nirsevimab (cvx 306) 3 07/30/23 Recorded [id number] 12y+ bivalent booster vax 09/13/22 Recorded pneumococcal [...] Maintenance, 11/21/24 2:02:00 PM EST, ER Tablet, [facility]/pharmacy #[id number], Partial fill upon patient request if the prescription is for a schedule II opioid drug., 165, cm, 11/21/24 13:37:00 EST, Height Start Date: 11/21/24 Status: Ordered Quantity: 90.0 Unit: tablet Repeat number: 2 hydrochlorothiazide 12.5 mg oral tablet 1 tablet, By Mouth, Daily, # 90 tablet, 3 Refills, Maintenance, 07/04/24 2:18:00 PM EDT, [facility], 165, cm, 04/18/24 13:49:00 EDT, Height Start Date: 07/04/24 Status: Ordered Quantity: 90.0 Unit: tablet Repeat number: 1 lisinopril 20 mg oral tablet 1, tablet, By Mouth, Daily, # 90 tablet, Refills 1, Tot. Refills 1, Maintenance, 10/04/24 4:13:00 PM EST, Route to Pharmacy Electronically, [facility]/pharmacy #[id number], 165, cm, 04/18/24 13:49:00 EDT, Height Start Date: 10/04/24 Status: Ordered Quantity: 90.0 Unit: tablet Repeat number: 2 metFORMIN 750 mg oral tablet, extended release 2 tablet, By Mouth, Daily, # 180 tablet, 1 Refills, Maintenance, 10/04/24 4:08:00 PM EST, [facility]/pharmacy #[id number], 165, cm, 04/18/24 13:49:00 EDT, Height [...] team information Care Team Personnel Name: Julien Snu MD Position: [facility] Physician - Primary Care Member Role: PCP Address: [address] [place] [id number] Telecom: Care Team Related Persons Name: Macrina PEARL Name: JONNY PEARL Insurance Providers Guarantor name: MERLIN PEARL Health Plan Information #: 1 Payer: MEDICARE PART B OUTPT Member Number: NA Policy Number: NA Group Number: NA Health Plan Information #: 2 Payer: [facility] Member Number: NA Policy Number: NA Group Number: NA
== END 2024-12-21 13:51 | disposition home or self-care (01) ==
LOC: HO.MAMMO 13:50
PROVIDERS: PCP Internal Medicine; Visit Provider Nurse Practitioner Adult Health
DX: Z13.820 Encounter for screening for osteoporosis (principal); M85.89 Other specified disorders of bone density and structure, multiple sites
CPT/HCPCS: 77080

== ENCOUNTER → 2024-12-21 14:00 | Outpatient (BNV) | payer MEDICARE, OTHER, SELFPAY | PROVIDERS: PCP Internal Medicine; Visit Provider Radiology Diagnostic Radiology | DX: E28.39 Other primary ovarian failure (principal) | CPT/HCPCS: 77080 ==

== ENCOUNTER 2025-04-07 06:01 | Outpatient (REF) | payer MEDICARE, OTHER, SELFPAY ==
--- OUTSIDE RECORDS SUMMARY | 2025-04-07 06:04 | XMS_ITS | Patient Health Record ---
Author Organization [facility] Address [address] [place] [address] Care Team Providers Care Recovery Engineer Name Role Phone Oneyda HAILE, Aiden Primary Care Provider Shyam Crystal Jr Unavailable [phone] Allergies Allergen (clinical drug ingredient) Drug/Non Drug Allergy documented on EMR Reaction Allergy Type Onset Date Status Sulfa Unknown Drug Allergy Active Penicillin Unknown Drug Allergy Active Reason For Referral No Information Medications Medication SIG (Take, Route, Frequency, Duration) Notes Start Date End Date Status MiraLax (colon prep) 8.3 oun ce ((238) grams mixed with Gatorade or Crystal Light orally begin at 5:00 p.m. the day before the procedure for 1 day 12/17/2020 Active Vitamin D3 Active glipiZIDE Active Atorvastatin Calcium Active Multivitamin Active Aspirin Active hydroCHLOROthiazide Active Lisinopril Active metFORMIN HCl Active Immunizations Vaccine Route Administration Date Status Comme nts Influenza Unknown 07/04/2020 Administered Problems Problem Type SNOMED Code ICD Code Onset Dates Problem Status W/U Status Risk Notes Problem 130686243 Encounter for other preprocedural examination (Z01.818) Active confirmed Problem 35417653 Change in bowel habits (R19.4) Active confirmed Problem 553368487986458 [facility] (current) use of aspirin (Z79.82) Active confirmed Problem 739563664 Family history o f colon cancer (Z80.0) Active confirmed Plan Of Treatment Future Test Test Name Order Date COLONOSCOPY 12/13/2015 COLONOSCOPY 12/17/2020 Insurance Providers Payer Name Payer Address Payer Phone Subscriber Number Group Number Insured Name Patient Relationship to Insured Coverage Start Date Coverage End Date [facility] [address] [place] [phone] [id number] MERLIN HAWKINS Self - patient is the insured Medical (General) History Medical History History ICD Code colonoscopy 02/21/16, normal, five-year f ollowup recommended hypertension diabetes type II hyperlipidemia Surgical History Surgery Date(Month/Year) hysterectomy with oophorectomy Cesarian section x 2 appendectomy
[2025-04-07 10:45] LABS: Estimated Average Glucose 157 mg/dL; Hemoglobin A1c % 7.1 % (<6.0)
[2025-04-07 10:53] LABS: Creatinine Urine 103.22 mg/dL; Microalbumin Urine < 5.0 mg/L
[2025-04-07 11:12] LABS: Alanine Aminotransferase 22 U/L (0-31); Albumin Level 4.1 g/dL (3.5-5.0); Alkaline Phosphatase 73 U/L (39-117); Anion Gap 9 (12-20); Aspartate Amino Transferase 25 U/L (5-31); Bilirubin Total 0.6 mg/dL (0.0-1.0); Blood Urea Nitrogen 25 mg/dL (9-16); Calcium 9.2 mg/dL (8.4-10.2); Carbon Dioxide 28 mmol/L (22-29); Chloride 109 mmol/L (96-108); Cholesterol 122 mg/dL (<200); Estimated Glomerular Filt Rate 57; Glucose Random 117 mg/dL (60-115); HDL Cholesterol 37 mg/dL (>40); LDL Cholesterol Calculated 56 mg/dL (<100); Potassium 4.5 mmol/L (3.3-5.1); Sodium 141 mmol/L (135-145); Total Protein 6.4 g/dL (6.5-8.0); Triglycerides 146 mg/dL (<150)
== END 2025-04-07 06:02 | disposition home or self-care (01) ==
LOC: HO.HMGCLDS 06:01
PROVIDERS: PCP Internal Medicine; Visit Provider Nurse Practitioner Adult Health
DX: E11.9 Type 2 diabetes mellitus without complications (principal)
CPT/HCPCS: 36415; 80053; 80061; 82570; 83036

== ENCOUNTER 2025-10-23 13:16 | Outpatient (REF) | payer MEDICARE, OTHER, SELFPAY ==
--- OUTSIDE RECORDS SUMMARY | 2025-10-23 15:17 | XMS_ITS | Patient Health Record ---
[facility] Address [address] [place] [address] Care Team Providers Care Liner Inserter Name Role Phone Hamilton Timmons MD Primary Care Provider Linus Borden Unavailable [phone] Allergies Allergen (clinical drug ingredient) Drug/Non Drug Allergy documented on EMR Reaction Allergy Type Onset Date Status sulfa rash, lips swell, itchy eyes Drug Allergy Active Penicillin rash, hives Drug Allergy Acti ve Reason For Referral No Information Medications Medication SIG (Take, Route, Frequency, Duration) Notes Start Date End Date Status hydroCHLOROthiazide 12.5 MG 1 capsule Or ally Once a day; Duration: 30 day(s) Active Lisinopril 20 MG 1 tablet Orally Once a day; Duration: 30 day(s) Active metFORMIN HCl Active Simvastatin 40 MG 1 tablet in the even ing Orally Once a day Active Aspirin 81 MG 1 tablet Orally Once a day; Duration: 30 day(s) Active Problems Problem Type SNOMED Code ICD Code Onset Dates Problem Status W/U Status Risk Notes Problem Type II diabetes mellitus without complication (651055453) Diabetic - NIDDM (250.00) Active confirmed Problem Hammer toe (782156553) Hammer toe (735.4) Active confirmed Problem Pain in limb (37129357) Pain in Limb (729.5) Active confirmed Problem Verruca plantaris (31261652) Verruca Plantaris (078.19) Active confirmed Plan Of Treatment Pending Test Test Name Order Date X ray : Foot, right 3V 10/01/2012 [id number] Destruction, 1-14 09/12/2014 Insurance Providers Payer Name Payer Address Payer Phone Subscriber Number Group Number Insured Name Patient Relationship to Insured Coverage Start Date Coverage End Date [facility] [address] [place] [address] [id number] Vanessa Kim Self - patient is the insured Medical (General) History Medical History History ICD Code cholesterol high blood pressure measles mumps chicken pox diabetes mellitus Surgical History Surgery Date(Month/Year) hysterectomy 2000 section 1979, 1981 appendectomy 1976
--- OUTSIDE RECORDS SUMMARY | 2025-10-23 15:17 | XMS_ITS | Patient Health Record ---
Author Organization [facility] Address [address] [place] [address] Care Team Providers Care Credit Authorizer Name Role Phone Oneyda HAILE, Aiden Primary Care Provider Shyam Crystal Jr Unavailable [phone] Allergies Allergen (clinical drug ingredient) Drug/Non Drug Allergy documented on EMR Reaction Allergy Type Onset Date Status Penicillin Unknown Drug Allergy Active Sulfa Unknown Drug Allergy Active Reason For Referral No Information Medications Medication SIG (Take, Route, Frequency, Duration) Notes Start Date End Date Status MiraLax (colon prep) 8.3 oun ce ((238) grams mixed with Gatorade or Crystal Light orally begin at 5:00 p.m. the day before the procedure; Duration: 1 day 12/17/2020 Active Vitamin D3 Active glipiZIDE Active Atorvastatin Calcium Active Multivitamin Active Aspirin Active hydroCHLOROthiazide Active Lisinopril Active metFORMIN HCl Active Immunizations Vaccine Route Administration Date Status Comme nts Influenza Unknown 07/04/2020 Administered Social History Social History Additional Details Category Social Info Options Details Miscellaneous: Marital status: Occupation: nurse Problems Problem Type SNOMED Code ICD Code Onset Dates Problem Status W/U Status Risk Notes Problem Pre-procedure evaluation check (478898048) Encounter for other preprocedural examination (Z01.818) Active confirmed Problem Change in bowel habit (22747056) Change in bowel habits (R19.4) Active confirmed Problem Long-term current use of antiplatelet drug (202830795225659 ) alf (current) use of aspirin (Z79.82) Active confirmed Problem Family History of Cancer of Colon (Situation) (254875648) Family history of colon cancer (Z80.0) Active confirmed Plan Of Treatment Future Test Test Name Order Date COLONOSCOPY 12/13/2015 COLONOSCOPY 12/17/2020 Insurance Providers Payer Name Payer Address Payer Phone Subscriber Number Group Number Insured Name Patient Relationship to Insured Coverage Start Date Coverage End Date [facility] [address] [facility], [place] [phone] [id number] MERLIN HAWKINS Self - patient is the insured Medical (General) History Medical History History ICD Code colonoscopy 02/21/16, normal, five-year f ollowup recommended hypertension diabetes type II hyperlipidemia Surgical History Surgery Date(Month/Year) hysterectomy with oophorectomy Cesarian section x 2 appendectomy
== END 2025-10-23 13:17 ==
LOC: HO.MAMMO 13:16
PROVIDERS: PCP Internal Medicine; Visit Provider Internal Medicine
DX: Z12.31 Encounter for screening mammogram for malignant neoplasm of breast (principal)
CPT/HCPCS: 77063; 77067

== ENCOUNTER → 2025-10-23 13:30 | Outpatient (BNV) | payer MEDICARE, OTHER, SELFPAY | PROVIDERS: PCP Internal Medicine; Visit Provider Internal Medicine | DX: Z12.31 Encounter for screening mammogram for malignant neoplasm of breast (principal) | CPT/HCPCS: 77063; 77067 ==